=== PATIENT | male | born 1955 | race Caucasian/White ===

== ENCOUNTER 2019-12-19 09:59 | Emergency (ER) | payer OTHER, SELFPAY ==
[2019-12-19] VITALS (11 sets, daily range): BP systolic 114–173; BP diastolic 56–78; PULSE 71–91; RESP 11–20; TEMP 36.5–36.9; O2SAT 97–100; BMI 44.1
--- NOTE | 2019-12-19 11:34 | ECG_ITS ---
Test Reason : sob Blood Pressure : / mmHG Vent. Rate : 065 BPM Atrial Rate : 065 BPM P-R Int : 202 ms QRS Dur : 100 ms QT Int : 454 ms P-R-T Axes : 061 024 046 degrees QTc Int : 472 ms Normal sinus rhythm Low voltage QRS Borderline ECG When compared with ECG of 05-SEP-2019 16:35, QRS voltage has decreased Referred By: Consuelo Granado Electronically Signed By:GINA DELAROSA MD
--- NOTE | 2019-12-19 11:34 | XR_ITS ---
EXAMINATION: XR CHEST CLINICAL INFORMATION: Shortness of breath COMPARISON: 09/05/2019 TECHNIQUE: Frontal view of the chest was obtained. FINDINGS: Cardiac leads overlie the chest. Lung volumes are low. Elevated right hemidiaphragm. Evaluation of the lung parenchyma is limited due to significantly low lung volumes. No dense consolidation. No significant pleural effusion. No edema. No pneumothorax. The cardiomediastinal silhouette remains prominent. Azygos fissure noted. IMPRESSION: Limited evaluation due to significantly low lung volumes. No gross acute pulmonary finding.
--- NOTE | 2019-12-19 11:57 | ED_ITS ---
HPI - Abdominal Pain General Chief Complaint: Abdominal Pain Time Seen by Provider: 12/19/19 11:19 Source: patient, family and EMS Mode of arrival: EMS History of Present Illness HPI narrative: 64-year-old male with a past medical history of HIV/ aids, polysubstance abuse, treated hepatitis-C, HTN, CKD, ascites, COVID-19 positive 12/16, currently a DNR/DNI on hospice care presenting to ED complaining of diffuse abdominal pain and distension, requesting paracentesis. Per patient he has regular scheduled paracentesis's, was scheduled for IR directed paracentesis with PleurX catheter placement which was canceled for unknown reasons. Patient was recently seen at [facility] ED for similar complaints on 12/16, but refused admission due to pain uncontrolled / unhappy with care. Patient follows outpatient here with . reports mild intermittent SOB. Denies CP, nausea/vomiting per [facility] records patient received 1 unit RBCs in ED for hemoglobin of 6.4. BUN/creatinine 68/4.6 and ammonia level 27 MD elicited complaint: abdominal pain Related Data Home Medications Medication Instructions Recorded Confirmed abacavir 600 mg PO DAILY 12/19/19 12/19/19 albuterol sulfate 2.5 mg INHALATION Q4H PRN 12/19/19 12/19/19 ascorbic acid (vitamin C) 250 mg PO BID 12/19/19 12/19/19 atovaquone [Mepron] 750 mg PO BIDWM 12/19/19 12/19/19 diphenhydramine HCl 25 mg PO Q6H PRN 12/19/19 12/19/19 dolutegravir [Tivicay] 50 mg PO BEDTIME 12/19/19 12/19/19 emtricitabine-tenofovir alafen 1 tab PO DAILY 12/19/19 [Descovy] ergocalciferol (vitamin D2) 50,000 unit PO QWEEK 12/19/19 12/19/19 fentanyl 1 patch TRANSDERMAL Q72H 12/19/19 12/19/19 ferrous sulfate 325 mg PO BID 12/19/19 12/19/19 gabapentin 600 mg PO BID 12/19/19 12/19/19 glipizide 2.5 mg PO DAILY 12/19/19 12/19/19 lamivudine 100 mg PO DAILY 12/19/19 12/19/19 methadone 50 mg PO DAILY 12/19/19 nifedipine [Nifedical XL] 60 mg PO DAILY 12/19/19 12/19/19 omeprazole 20 mg PO DAILY 12/19/19 12/19/19 sertraline 150 mg PO DAILY 12/19/19 12/19/19 Allergies Allergy/AdvReac Type Severity Reaction Status Date / Time silver sulfadiazine Allergy Mild BURNING Verified 12/19/19 15:25 [From SILVADENE] erythromycin base Allergy Unknown HIVES Verified 12/19/19 15:25 [Erythromycin Base] Review of Systems Review of Systems Constitutional: No Weight loss, No Fever, No Chills, No Night Sweats, + Fatigue, No Malaise Cardiovascular: No Chest Pain, + SOB, No Dyspnea on Exertion, No Orthopnea, No Edema, No Palpitations Respiratory: No Cough, No Sputum, No Wheezing Gastrointestinal: No Nausea, No Vomiting, No Diarrhea, No Constipation, +Abdom inal pain Skin: No Skin Lesions, No rash Yes all other systems are reviewed and are negative Physical Exam Vital Signs: Vital Signs: Vital Signs Temp Pulse Resp BP Pulse Ox 12/19/19 15:20 98.4 F 91 20 173/78 H 12/19/19 15:19 97.7 F 81 20 154/74 H 99 12/19/19 15:08 97.7 F 79 13 153/73 H 12/19/19 12:24 97.8 F 74 18 137/65 100 12/19/19 10:26 97.8 F 71 16 114/74 99 Body Mass Index 44.1 Const: Other: lethargic on exam, difficulty keeping eyes open, confused General: lethargic Orientation/consciousness: lethargic HENMT: Head: Yes normal to inspection Ears: hearing grossly normal bilaterally General nose exam: Normal external nose present Face and sinus: Yes normal facial exam Eyes: General: appearance normal, both eyes and all related structures EOM: EOMs intact bilaterally Neck: Neck: Yes normal visual inspection Resp: Effort & Inspection: normal respiratory effort Auscultation: di minished lung sounds ( bibasilar) Cardio: Rate: regular rate Heart sounds: S1 normal heart sound present and S2 normal heart sound present GI: Inspection: Yes distended Palpation (GI): Firmness to palpation present (GI), Tenderness to palpation present (GI) ( diffuse), no guarding and not rigid Neuro: Other: Lethargic Extrem: General: Yes normal to inspection Course Course Course Narrative: -1238-- H&H low 6.9/22 >> consent for blood obtained from Healthcare proxy/ (verbally on the phone at [phone]) > will give 1U RBCs -1323-- BUN creatinine and 69/3.83 ( chronically elevated), elevated LDH/alk- phos - ammonia 41, lipase 108 - CXR with low lung volumes. Grossly clear >> IR paged [phone]-- radiology asking for abdomen ultrasound to look for pocket, to perform paracentesis now. Case discussed with hospitalist who does not see benefit of inpatient services as patient is on hospice, and labs at baseline. If patient can get paracentesis tonight without complications, & UA is negative will DC home back to his hospice care. --1700- ED care transferred to RINA Das pending paracentesis, UA, and anticipated dispo per above MDM - Abdominal Pain MDM Narrative Medical decision making narrative: 64-year-old male with a past medical history of HIV/ aids, polysubstance abuse, treated hepatitis-C, HTN, CKD, ascites, COVID-19 positive 12/16, currently a DNR/DNI on hospice care presenting to ED complaining of diffuse abdominal pain and distension, requesting paracentesis. On exam VSS, NAD, lethargic, difficulty keeping eyes open, abdomen distended, firm, diffusely tender. Concern for encephalopathy /fluid overload ascites vs ?infectious etiology. Low concern for SBP, or sepsis. Rule out anemia plan: EKG, labs, CXR, admission Lab Data Result diagrams: 12/19/19 12:17 12/19/19 12:17 Labs: Lab Results 12/19/19 12/19/19 12/19/19 Range/Units 12:17 12:17 12:17 WBC 3.7 L (4.8-10.8) X10*3/uL RBC 2.60 L (4.60-5.80) X10*6/uL Hgb 6.9 L* (14.0-18.0) g/dl Hct 22.0 L (42-52) % MCV 84.6 (80-98) fL MCH 26.5 L (27.0-33.0) pg MCHC 31.4 (31.0-36.0) g/dl RDW 17.2 H (11.0-16.0) % Plt Count 98 L (160-400) X10*3/uL MPV 9.5 (9.4-12.4) fL Immature Gran % (Auto) 1.1 H (0.0-0.4) % Neut % (Auto) 74.4 H (45-73) % Lymph % (Auto) 12.0 L (20-40) % Barrow % (Auto) 9.2 (2-11) % Eos % (Auto) 3.0 (0-4) % Baso % (Auto) 0.3 (0-2) % Lymph # (Auto) 0.4 L (1.2-4.9) X10*3/uL Barrow # (Auto) 0.3 (0.1-1.2) X10*3/uL Eos # (Auto) 0.1 (0.0-0.4) X10*3/uL Baso # (Auto) 0.0 (0.0-0.2) X10*3/uL Abs Immat Gran (auto) 0.04 H (0.00-0.03) X10*3/uL Absolute Neuts (auto) 2.7 (2.0-8.3) X10*3/uL Absolute Nucleated RBC 0.000 (0.0-0.012) X10*3/uL Nucleated RBC % (auto) 0.0 (0.0-0.2) /100WBC Smear Tech's Comments VERIFIED PT (10.8-13.0) SEC INR (0.9-1.1) APTT (24.1-38.0) SEC Sodium (135-145) mmol/L Potassium (3.3-5.1) mmol/l Chloride (96-108) mmol/L Carbon Dioxide (22-29) mmol/L Anion Gap (12-20) BUN (9-16) mg/dL Creatinine (0.5-1.4) mg/dL Estim Creat Clear Calc Estimated GFR Random Glucose (60-115) mg/dL Calcium (8.4-10.2) mg/dL Magnesium (1.6-2.6) mg/dL Ferritin (20-250) ng/mL Total Bilirubin (0.0-1.0) mg/dL Direct Bilirubin (0.0-0.5) mg/dL AST (5-37) U/L ALT (0-40) U/L Alkaline Phosphatase (39-117) U/L Ammonia 41 (13-55) umol/L Lactate Dehydrogenase (118-273) U/L B-Natriuretic Peptide (<100) pg/mL Total Protein (6.5-8.0) g/dL Albumin (3.5-5.0) g/dL Lipase (8-78) U/L Ethyl Alcohol < 10 mg/dL Coronavirus (PCR) (Negative) Blood Type Antibody Screen Crossmatch 12/19/19 12/19/19 12/19/19 Range/Units 12:17 12:17 12:17 WBC (4.8-10.8) X10*3/uL RBC (4.60-5.80) X10*6/uL Hgb (14.0-18.0) g/dl Hct (42-52) % MCV (80-98) fL MCH (27.0-33.0) pg MCHC (31.0-36.0) g/dl RDW (11.0-16.0) % Plt Count (160-400) X10*3/uL MPV (9.4-12.4) fL Immature Gran % (Auto) (0.0-0.4) % Neut % (Auto) (45-73) % Lymph % (Auto) (20-40) % Barrow % (Auto) (2-11) % Eos % (Auto) (0-4) % Baso % (Auto) (0-2) % Lymph # (Auto) (1.2-4.9) X10*3/uL Barrow # (Auto) (0.1-1.2) X10*3/uL Eos # (Auto) (0.0-0.4) X10*3/uL Baso # (Auto) (0.0-0.2) X10*3/uL Abs Immat Gran (auto) (0.00-0.03) X10*3/uL Absolute Neuts (auto) (2.0-8.3) X10*3/uL Absolute Nucleated RBC (0.0-0.012) X10*3/uL Nucleated RBC % (auto) (0.0-0.2) /100WBC Smear Tech's Comments PT 14.3 H (10.8-13.0) SEC INR 1.2 H (0.9-1.1) APTT 42.8 H (24.1-38.0) SEC Sodium 133 L (135-145) mmol/L Potassium 3.6 (3.3-5.1) mmol/l Chloride 107 (96-108) mmol/L Carbon Dioxide 18 L (22-29) mmol/L Anion Gap 12 (12-20) BUN 69 H (9-16) mg/dL Creatinine 3.83 H (0.5-1.4) mg/dL Estim Creat Clear Calc 26.4 Estimated GFR 16 Random Glucose 142 H (60-115) mg/dL Calcium 7.6 L (8.4-10.2) mg/dL Magnesium 1.7 (1.6-2.6) mg/dL Ferritin 315 H (20-250) ng/mL Total Bilirubin 0.4 (0.0-1.0) mg/dL Direct Bilirubin 0.3 (0.0-0.5) mg/dL AST 56 H (5-37) U/L ALT 28 (0-40) U/L Alkaline Phosphatase 354 H (39-117) U/L Ammonia (13-55) umol/L Lactate Dehydrogenase 290 H (118-273) U/L B-Natriuretic Peptide 121 H (<100) pg/mL Total Protein 6.3 L (6.5-8.0) g/dL Albumin 2.1 L (3.5-5.0) g/dL Lipase 108 H (8-78) U/L Ethyl Alcohol mg/dL Coronavirus (PCR) (Negative) Blood Type Antibody Screen Crossmatch 12/19/19 12/19/19 Range/Units 13:21 13:42 WBC (4.8-10.8) X10*3/uL RBC (4.60-5.80) X10*6/uL Hgb (14.0-18.0) g/dl Hct (42-52) % MCV (80-98) fL MCH (27.0-33.0) pg MCHC (31.0-36.0) g/dl RDW (11.0-16.0) % Plt Count (160-400) X10*3/uL MPV (9.4-12.4) fL Immature Gran % (Auto) (0.0-0.4) % Neut % (Auto) (45-73) % Lymph % (Auto) (20-40) % Barrow % (Auto) (2-11) % Eos % (Auto) (0-4) % Baso % (Auto) (0-2) % Lymph # (Auto) (1.2-4.9) X10*3/uL Barrow # (Auto) (0.1-1.2) X10*3/uL Eos # (Auto) (0.0-0.4) X10*3/uL Baso # (Auto) (0.0-0.2) X10*3/uL Abs Immat Gran (auto) (0.00-0.03) X10*3/uL Absolute Neuts (auto) (2.0-8.3) X10*3/uL Absolute Nucleated RBC (0.0-0.012) X10*3/uL Nucleated RBC % (auto) (0.0-0.2) /100WBC Smear Tech's Comments PT (10.8-13.0) SEC INR (0.9-1.1) APTT (24.1-38.0) SEC Sodium (135-145) mmol/L Potassium (3.3-5.1) mmol/l Chloride (96-108) mmol/L Carbon Dioxide (22-29) mmol/L Anion Gap (12-20) BUN (9-16) mg/dL Creatinine (0.5-1.4) mg/dL Estim Creat Clear Calc Estimated GFR Random Glucose (60-115) mg/dL Calcium (8.4-10.2) mg/dL Magnesium (1.6-2.6) mg/dL Ferritin (20-250) ng/mL Total Bilirubin (0.0-1.0) mg/dL Direct Bilirubin (0.0-0.5) mg/dL AST (5-37) U/L ALT (0-40) U/L Alkaline Phosphatase (39-117) U/L Ammonia (13-55) umol/L Lactate Dehydrogenase (118-273) U/L B-Natriuretic Peptide (<100) pg/mL Total Protein (6.5-8.0) g/dL Albumin (3.5-5.0) g/dL Lipase (8-78) U/L Ethyl Alcohol mg/dL Coronavirus (PCR) POSITIVE A (Negative) Blood Type B Positive Antibody Screen NEGATIVE Crossmatch See Detail Discharge Plan Discharge Clinical Impression: Anemia, Ascites, Lethargy Prescriptions: No Action gabapentin 600 mg Tablet 600 mg PO BID RF: 0 sertraline 100 mg Tablet 150 mg PO DAILY RF: 0 ergocalciferol (vitamin D2) 50,000 unit Tablet 50,000 unit PO QWEEK RF: 0 ascorbic acid (vitamin C) 250 mg Tablet 250 mg PO BID RF: 0 ferrous sulfate 325 mg (65 mg iron) Tablet 325 mg PO BID RF: 0 omeprazole 20 mg Capsule,Delayed Release(Dr/Ec) 20 mg PO DAILY RF: 0 Descovy 200-25 mg Tablet 1 tab PO DAILY RF: 0 albuterol sulfate 2.5 mg /3 mL (0.083 %) Solution For Nebulization 2.5 mg INHALATION Q4H PRN (Reason: Shortness Of Breath) RF: 0 diphenhydramine HCl 25 mg Tablet 25 mg PO Q6H PRN (Reason: Allergic Symptoms) RF: 0 methadone 10 mg/mL Concentrate 50 mg PO DAILY RF: 0 atovaquone [Mepron] 750 mg/5 mL Suspension 750 mg PO BIDWM RF: 0 Tivicay 50 mg Tablet 50 mg PO BEDTIME RF: 0 fentanyl 50 mcg/hr Patch 72 Hour 1 patch TRANSDERMAL Q72H RF: 0 nifedipine [Nifedical XL] 60 mg Tablet Extended Release 24hr 60 mg PO DAILY RF: 0 glipizide 2.5 mg Tablet Extended Release 24hr 2.5 mg PO DAILY RF: 0 lamivudine 10 mg/mL Solution 100 mg PO DAILY RF: 0 abacavir 300 mg Tablet 600 mg PO DAILY RF: 0 PMFSH Past Medical History Attestation statement: The following information was validated with the patient. Medical History (Updated 12/19/19 @ 16:21 by RINA Montes De Oca) CKD (chronic kidney disease) Encephalopathy HIV (human immunodeficiency virus infection) Liver failure Social History Social History Alcohol intake: never Smoked in Last 30 Days: No Use of substances other than those prescribed or required for medical reasons: No Advance Directives: No Advance Directives Information Provided: No
[2019-12-19 12:26] LABS: Basophils Percent Auto 0.3 % (0-2); Eosinophils Absolute Auto 0.1 X10*3/uL (0.0-0.4); Imm Gran Abs Auto 0.04 X10*3/uL (0.00-0.03); Imm Gran Pct Auto 1.1 % (0.0-0.4); Lymphocytes Absolute Auto 0.4 X10*3/uL (1.2-4.9); MANUAL DIFF FLAG SCAN; Mean Corpuscular HGB Conc 31.4 g/dl (31.0-36.0); Mean Corpuscular Hemoglobin 26.5 pg (27.0-33.0); Mean Corpuscular Volume 84.6 fL (80-98); Mean Platelet Volume 9.5 fL (9.4-12.4); Monocytes Absolute Auto 0.3 X10*3/uL (0.1-1.2); Monocytes Percent Auto 9.2 % (2-11); Neutrophils Absolute Auto 2.7 X10*3/uL (2.0-8.3); Neutrophils Percent Auto 74.4 % (45-73); Red Cell Distribution Width 17.2 % (11.0-16.0); SCAN SMEAR FLAG 1; White Blood Count 3.7 X10*3/uL (4.8-10.8)
--- NOTE | 2019-12-19 12:27 | PC.NURSE ---
introduced self to pt. c/o lower back pain chronic. pt is alert and oriented to person and place, somnolent, cannot finish sentences. denies any OPI use this am. denies sob. vs wnl, lung sounds clear. rapid covid to be performed.
[2019-12-19 12:30] LABS: INTERNATIONAL NORM RATIO 1.2 (0.9-1.1); Prothrombin Time 14.3 SEC (10.8-13.0)
[2019-12-19 12:32] LABS: Hemoglobin 6.9 g/dl (14.0-18.0); Platelet Count 98 X10*3/uL (160-400)
[2019-12-19 12:33] LABS: Partial Thromboplastin Time 42.8 SEC (24.1-38.0)
--- NOTE | 2019-12-19 12:37 | XR_ITS ---
EXAMINATION: XR CHEST CLINICAL INFORMATION: Shortness of breath, COVID+ COMPARISON: Chest radiographs 12/19/2019, 09/05/2019 TECHNIQUE: Upright portable AP view of the chest is performed. FINDINGS: Patient is slightly rotated to left and lordotically position. There are low lung volumes. There is no lobar or segmental airspace consolidation or definite groundglass opacity. Azygous fissure/lobe again noted right medial apex. The heart is normal in size. The vascularity is normal. IMPRESSION: Low lung volumes. Lungs grossly clear.
[2019-12-19 12:42] LABS: Ammonia 41 umol/L (13-55)
[2019-12-19 12:45] LABS: Ethanol < 10 mg/dL
[2019-12-19 12:52] LABS: B Type Natriuretic Peptide 121 pg/mL (<100)
[2019-12-19 13:00] LABS: Alanine Aminotransferase 28 U/L (0-40); Albumin Level 2.1 g/dL (3.5-5.0); Alkaline Phosphatase 354 U/L (39-117); Anion Gap 12 (12-20); Aspartate Amino Transferase 56 U/L (5-37); Bilirubin Direct 0.3 mg/dL (0.0-0.5); Bilirubin Total 0.4 mg/dL (0.0-1.0); Blood Urea Nitrogen 69 mg/dL (9-16); Calcium 7.6 mg/dL (8.4-10.2); Carbon Dioxide 18 mmol/L (22-29); Chloride 107 mmol/L (96-108); Creatinine Clr Calc Pharmacy 26.4; Estimated Glomerular Filt Rate 16; Glucose Random 142 mg/dL (60-115); Lactate Dehydrogenase 290 U/L (118-273); Magnesium 1.7 mg/dL (1.6-2.6); Potassium 3.6 mmol/l (3.3-5.1); Sodium 133 mmol/L (135-145); Total Protein 6.3 g/dL (6.5-8.0)
[2019-12-19 13:10] LABS: Ferritin 315 ng/mL (20-250)
[2019-12-19 13:18] LABS: Lipase 108 U/L (8-78)
[2019-12-19 14:02] LABS: SLIDE REVIEW VERIFIED
[2019-12-19 14:42] LABS: SARS COV2 PCR INHOUSE POSITIVE (Negative)
--- NOTE | 2019-12-19 14:47 | PC.NURSE ---
PHARMACY TO COMPLETE MED REC. 18G IN L AC PLACED WITH ULTRASOUND BY AYUSH CASON
--- NOTE | 2019-12-19 15:24 | PC.NURSE ---
call made out to pharmacy, they will fax over med list. blood running
--- NOTE | 2019-12-19 16:34 | US_ITS ---
EXAMINATION: ULTRASOUND-GUIDED PARACENTESIS CLINICAL INFORMATION: Ascites COMPARISON: None TECHNIQUE: Ultrasound-guided paracentesis FINDINGS: Informed consent was obtained from the patient prior to the procedure. During this process, the procedure and potential alternatives were explained, along with the intended outcome and benefits. The risks of the procedure, as well as the risk of not doing the procedure, were discussed. The patient was given the opportunity to ask questions regarding the procedure and appeared competent to make medical decisions. A signed consent form which documents this discussion was placed in the medical record. Using sterile technique and ultrasound guidance a 5 Lao Yueh needle needle was placed into the peritoneal cavity within the left lower quadrant and a total of 9.7 mL of slightly cloudy yellow fluid was removed. Patient, procedure without difficulty. IMPRESSION: Paracentesis with removal of 9.7 L of slightly cloudy yellow fluid.
[2019-12-19] MEDS: fentaNYL citrate/PF 100 MCG/2 ML VIAL 50 MCG IVPUSH (16:50)
--- NOTE | 2019-12-19 16:56 | PC.NURSE ---
PT TO RADIOLOGY FOR ULTRASOUND. BLOOD INFUSED AND DOCUMENTED. MEDICATED FOR CHRONIC BACK PAIN PER EMR.
--- NOTE | 2019-12-19 17:57 | PC.NURSE ---
PER ULTRASOUND RN, 9.7L DRAINED DURING PARACENTESIS.LAST BP 153/68, DRAINED FROM L SIDE.
[2019-12-19 18:56] LABS: Glucose Urine UA NEG (NEG); Leukocyte Esterase Urine NEG (NEG); Nitrite Urine NEG (NEG); PH 5.5 (5.0-8.0); Specific Gravity - Urine 1.025 (1.005-1.025); Urine Blood 3+ (NEG); Urine Ketones NEG (NEG); Urine Protein 2+ MG/DL (NEG-TRACE)
[2019-12-19 18:57] LABS: Color Urine YELLOW
[2019-12-19 18:58] LABS: Appearance Urine CLEAR
[2019-12-19 19:11] LABS: Bacteria Urine 1+ /LPF; WBC Urine 0 /HPF (0-4)
[2019-12-19 19:16] LABS: Amphetamine Screen Urine Not Detected (Not Detect); Barbiturates, Urine Not Detected (Not Detect); Benzodiazepines Screen Urine Not Detected (Not Detect); Cannabinoid Screen Urine Not Detected (Not Detect); Cocaine Screen Urine Not Detected (Not Detect); Opiate Screen Urine POSITIVE (Not Detect); Phencyclidine Screen Urine Not Detected (Not Detect)
[2019-12-19 19:49] LABS: WBC Peritoneal Fluid 0.122 X10*3/uL
[2019-12-19 19:50] LABS: Neutrophils Peritoneal Fluid 9 %; RBC Peritoneal Fluid < 0.002 X10*6/uL
[2019-12-19 19:51] LABS: BF Shift QC OK YES; Basophils Peritoneal Fl 0 %; Eosinophils Peritoneal Fl 0 %; Lymphocyte Peritoneal Fl 41 %; Monocytes Peritoneal Fl 34 %; Other Peritioneal Fl 16 %
[2019-12-19 19:52] LABS: Man Diluent Bkgrd OK YES; PMN% 7.4 %
[2019-12-19 19:53] LABS: MN% 92.6 %
--- NOTE | 2019-12-19 20:20 | PC.NURSE ---
awaiting specimen culture results from fluid drawn during paracentesis
--- NOTE | 2019-12-19 21:10 | PC.NURSE ---
call made out to microbiology, there is debate about whether specimen is processed inhouse or sent out. they will call back with update
--- NOTE | 2019-12-19 21:29 | PC.NURSE ---
LAB CALLED, PTS SPECIMEN HAS TO BE SENT OUT, ONLY PROCESSED DURING THE DAY. PT AGREES TO ADMISSION.
--- NOTE | 2019-12-19 22:36 | PC.NURSE ---
PT TO BE DISCHARGED PER HOSPITALIST. PT REUQESTING MORE PAIN MEDICATIONS. PA AWARE. PT C/O NECK, BACK, ABDOMINAL PAIN. ORIGINALLY, ABDOMINAL PAIN RESOLVED WITH PARACENTESIS. PT AWARE OF PLAN TO DISCHARGE.
--- NOTE | 2019-12-19 23:29 | PC.NURSE ---
REPORT TAKEN FROM DINO AT 23:00. PT DISCHARGED, EMS HERE FOR TRANSPORT HOME.
--- NOTE | 2019-12-19 23:53 | PC.NURSE ---
ems in room and ready to take patient home. pt initially claimed that his medication bottles were placed in his black bag. no medications found. pt then reports that his medications were brought to pharmacy. slip in chart located and given to patient. pharmacy closed, pt needs to return at 6am.
[2019-12-20 08:58] LABS: Albumin Peritoneal Fluid 0.3
--- NOTE | 2019-12-22 09:00 | PC.NURSE ---
pt was not admitted he was dc on 12/19 at 0058
== END 2019-12-22 09:09 | disposition home or self-care (01) ==
PROVIDERS: Physician Assistant; Emergency Provider Emergency Medicine; PCP Internal Medicine
DX: U07.1 COVID-19 (principal); D64.9 Anemia, unspecified; R18.8 Other ascites; R53.83 Other fatigue; I12.9 Hypertensive chronic kidney disease with stage 1 through stage 4 chronic kidney disease, or unspecified chronic kidney disease; N18.9 Chronic kidney disease, unspecified; Z21 Asymptomatic human immunodeficiency virus [HIV] infection status; K72.90 Hepatic failure, unspecified without coma; Z66 Do not resuscitate
CPT/HCPCS: 36415; 36430; 49083; 71045; 80048; 80076; 80307; 80320; 81001; 82042; 82140; 82728; 83615; 83690; 83735; 83880; 85025; 85610; 85730; 86850; 86900; 86901; 86920; 86923; 87071; 87205; 87635; 89051; 93005; 99284; 99285; J3010; P9016

== ENCOUNTER 2019-12-22 22:34 | Emergency (ER) | payer OTHER, SELFPAY ==
[2019-12-22 22:51] VITALS: BP 135/63; PULSE 75; RESP 16; TEMP 36.8; O2SAT 100; BMI 35.4
--- NOTE | 2019-12-22 23:56 | ED_ITS ---
HPI - General Adult General Chief complaint: Altered Mental Status Stated complaint: ams Time Seen by Provider: 12/22/19 23:07 History of Present Illness HPI narrative: This is a 64-year-old male with multiple comorbidities and currently on hospice and recently seen here in the emergency department on 12/18 and that time found to be COVID-19 positive. In addition, patient was brought i n by EMS with reports that they had been called to the house earlier in the day but patient had declined transportation and then again called this evening and they endorse that patient has altered mental status. on evaluation of the patient at bedside he is very upset and continues to state that he is angry to be here. He is saying that it is 2020 and states that he was seen here a couple of days ago and had fluid removed from his abdomen. Otherwise, patient denies any fevers, chills, nausea, vomiting, abdominal discomfort. Related Data Home Medications Medication Instructions Recorded Confirmed abacavir 600 mg PO DAILY 12/19/19 12/19/19 albuterol sulfate 2.5 mg INHALATION Q4H PRN 12/19/19 12/19/19 ascorbic acid (vitamin C) 250 mg PO BID 12/19/19 12/19/19 atovaquone [Mepron] 750 mg PO BIDWM 12/19/19 12/19/19 diphenhydramine HCl 25 mg PO Q6H PRN 12/19/19 12/19/19 dolutegravir [Tivicay] 50 mg PO BEDTIME 12/19/19 12/19/19 emtricitabine-tenofovir alafen 1 tab PO DAILY 12/19/19 [Descovy] ergocalciferol (vitamin D2) 50,000 unit PO QWEEK 12/19/19 12/19/19 fentanyl 1 patch TRANSDERMAL Q72H 12/19/19 12/19/19 ferrous sulfate 325 mg PO BID 12/19/19 12/19/19 gabapentin 600 mg PO BID 12/19/19 12/19/19 glipizide 2.5 mg PO DAILY 12/19/19 12/19/19 lamivudine 100 mg PO DAILY 12/19/19 12/19/19 methadone 50 mg PO DAILY 12/19/19 nifedipine [Nifedical XL] 60 mg PO DAILY 12/19/19 12/19/19 omeprazole 20 mg PO DAILY 12/19/19 12/19/19 sertraline 150 mg PO DAILY 12/19/19 12/19/19 Allergies Allergy/AdvReac Type Severity Reaction Status Date / Time silver sulfadiazine Allergy Mild BURNING Verified 12/19/19 15:25 [From SILVADENE] erythromycin base Allergy Unknown HIVES Verified 12/19/19 15:25 [Erythromycin Base] Review of Systems Review of Systems: Pertinent positives and negatives as stated in HPI 10 point review systems is otherwise negative. [facility] Past Medical History Source: nursing notes reviewed Medical History CKD (chronic kidney disease) Encephalopathy HIV (human immunodeficiency virus infection) Liver failure Social History Social History Alcohol intake: never Advance Directives: No Physical Exam Vital Signs: Vital Signs: Vital Signs Temp Pulse Resp BP Pulse Ox 12/23/19 02:58 98.7 F 87 14 135/67 99 12/23/19 00:39 98.1 F 73 14 132/61 100 12/22/19 22:51 98.3 F 75 16 135/63 100 Body Mass Index 35.4 VITAL SIGNS: Reviewed. GENERAL: Chronic illness, appears older than stated age, in no acute distress. HEAD: Normocephalic/atraumatic, EYES: PERRLA, EOMI intact without pain, no nystagmus/pallor/icterus noted EARS: Ext canals without abnormality, TMs non-bulging and non-erythematous NOSE: Nares patent bilateral OROPHARYNX: no oral lesions noted, posterior pharynx clear and non-erythematous without noted tonsillar enlargement/erythema/exudates NECK: Supple, no adenopathy LUNGS: Normal breath sounds. No adventitious sounds or accessory muscle use. SpO2<100> CARDIOVASCULAR: Regular rate and rhythm without noted murmurs, no JVD or lower extremity edema. ABDOMEN: Soft, distended, with bowel sounds. No rigidity. No guarding. No palpable masses or hernias noted MUSCULOSKELETAL: No tenderness, deformities, or effusions noted on gross inspection. EXTREMITIES: No cyanosis, clubbing or edema, chronic skin thickening and discoloration. SKIN: Inspection of the skin reveals no rashes, ulcerations, jaundice, pallor, or petechiae. NEUROLOGIC: Drowsy and oriented x 3. Strength and sensation to light touch were grossly intact x 4. Course Course Course Narrative: this is a 64-year-old male with history and clinical presentation of multiple visits between [facility] in [facility]. Although patient is drowsy he appears to be appropriate and response and is upset about being brought in. Suspect that drowsiness secondary to pain medication regimen while on hospice. Review of investigations is negative for any acute derangements when compared to prior and patient is hemodynamically stable. Patient states he wishes to return home and it is felt that he is appropriate to make this request in light of clinical evaluation and review of lab work as well as vital signs. Medical Decision Making Lab Data Result diagrams: 12/23/19 01:01 12/23/19 01:01 Labs: Lab Results 12/23/19 12/23/19 12/23/19 Range/Units 01:01 01:01 01:01 WBC 3.9 L (4.8-10.8) X10*3/uL RBC 2.62 L (4.60-5.80) X10*6/uL Hgb 7.3 L (14.0-18.0) g/dl Hct 22.7 L (42-52) % MCV 86.6 (80-98) fL MCH 27.9 (27.0-33.0) pg MCHC 32.2 (31.0-36.0) g/dl RDW 17.3 H (11.0-16.0) % Plt Count 108 L (160-400) X10*3/uL MPV 11.2 (9.4-12.4) fL Immature Gran % (Auto) 0.8 H (0.0-0.4) % Neut % (Auto) 73.0 (45-73) % Lymph % (Auto) 11.2 L (20-40) % [place] % (Auto) 10.2 (2-11) % Eos % (Auto) 4.3 H (0-4) % Baso % (Auto) 0.5 (0-2) % Lymph # (Auto) 0.4 L (1.2-4.9) X10*3/uL [place] # (Auto) 0.4 (0.1-1.2) X10*3/uL Eos # (Auto) 0.2 (0.0-0.4) X10*3/uL Baso # (Auto) 0.0 (0.0-0.2) X10*3/uL Abs Immat Gran (auto) 0.03 (0.00-0.03) X10*3/uL Absolute Neuts (auto) 2.9 (2.0-8.3) X10*3/uL Absolute Nucleated RBC 0.000 (0.0-0.012) X10*3/uL Nucleated RBC % (auto) 0.0 (0.0-0.2) /100WBC Smear Tech's Comments VERIFIED Sodium 136 (135-145) mmol/L Potassium 4.0 (3.3-5.1) mmol/l Chloride 110 H (96-108) mmol/L Carbon Dioxide 18 L (22-29) mmol/L Anion Gap 12 (12-20) BUN 71 H (9-16) mg/dL Creatinine 3.90 H (0.5-1.4) mg/dL Estim Creat Clear Calc 26.0 Estimated GFR 16 Random Glucose 134 H (60-115) mg/dL Calcium 7.4 L (8.4-10.2) mg/dL Total Bilirubin 0.4 (0.0-1.0) mg/dL AST 38 H (5-37) U/L ALT 20 (0-40) U/L Alkaline Phosphatase 265 H D (39-117) U/L Ammonia 47 (13-55) umol/L Total Protein 6.1 L (6.5-8.0) g/dL Albumin 2.0 L (3.5-5.0) g/dL Lipase 92 H (8-78) U/L Discharge Plan Discharge Clinical Impression: Encounter for medical screening examination Patient Disposition: Home, Self-Care Instructions: Ascites (ED), Altered Mental Status (ED) Additional Instructions: please do not hesitate to return to the emergency department should you e xperience any acute worsening of your symptoms. Prescriptions: No Action gabapentin 600 mg Tablet 600 mg PO BID RF: 0 sertraline 100 mg Tablet 150 mg PO DAILY RF: 0 ergocalciferol (vitamin D2) 50,000 unit Tablet 50,000 unit PO QWEEK RF: 0 ascorbic acid (vitamin C) 250 mg Tablet 250 mg PO BID RF: 0 ferrous sulfate 325 mg (65 mg iron) Tablet 325 mg PO BID RF: 0 omeprazole 20 mg Capsule,Delayed Release(Dr/Ec) 20 mg PO DAILY RF: 0 Descovy 200-25 mg Tablet 1 tab PO DAILY RF: 0 albuterol sulfate 2.5 mg /3 mL (0.083 %) Solution For Nebulization 2.5 mg INHALATION Q4H PRN (Reason: Shortness Of Breath) RF: 0 diphenhydramine HCl 25 mg Tablet 25 mg PO Q6H PRN (Reason: Allergic Symptoms) RF: 0 methadone 10 mg/mL Concentrate 50 mg PO DAILY RF: 0 atovaquone [Mepron] 750 mg/5 mL Suspension 750 mg PO BIDWM RF: 0 Tivicay 50 mg Tablet 50 mg PO BEDTIME RF: 0 fentanyl 50 mcg/hr Patch 72 Hour 1 patch TRANSDERMAL Q72H RF: 0 nifedipine [Nifedical XL] 60 mg Tablet Extended Release 24hr 60 mg PO DAILY RF: 0 glipizide 2.5 mg Tablet Extended Release 24hr 2.5 mg PO DAILY RF: 0 lamivudine 10 mg/mL Solution 100 mg PO DAILY RF: 0 abacavir 300 mg Tablet 600 mg PO DAILY RF: 0 Referrals: Dante Braun MD [Physician] - 2 days (Patient needs to be further evaluated for goals of care while being on hospice as there have been multiple hospital visits.)
[2019-12-23 00:39] VITALS: BP 132/61; PULSE 73; RESP 14; TEMP 36.7; O2SAT 100
[2019-12-23 01:18] LABS: Basophils Percent Auto 0.5 % (0-2); Eosinophils Absolute Auto 0.2 X10*3/uL (0.0-0.4); Eosinophils Percent Auto 4.3 % (0-4); Hematocrit 22.7 % (42-52); Hemoglobin 7.3 g/dl (14.0-18.0); Imm Gran Abs Auto 0.03 X10*3/uL (0.00-0.03); Imm Gran Pct Auto 0.8 % (0.0-0.4); Lymphocytes Absolute Auto 0.4 X10*3/uL (1.2-4.9); Lymphocytes Percent Auto 11.2 % (20-40); MANUAL DIFF FLAG SCAN; Mean Corpuscular HGB Conc 32.2 g/dl (31.0-36.0); Mean Corpuscular Hemoglobin 27.9 pg (27.0-33.0); Mean Corpuscular Volume 86.6 fL (80-98); Mean Platelet Volume 11.2 fL (9.4-12.4); Monocytes Absolute Auto 0.4 X10*3/uL (0.1-1.2); Monocytes Percent Auto 10.2 % (2-11); Neutrophils Absolute Auto 2.9 X10*3/uL (2.0-8.3); Platelet Count 108 X10*3/uL (160-400); Red Blood Count 2.62 X10*6/uL (4.60-5.80); Red Cell Distribution Width 17.3 % (11.0-16.0); SCAN SMEAR FLAG 1; White Blood Count 3.9 X10*3/uL (4.8-10.8)
[2019-12-23 01:20] LABS: Ammonia 47 umol/L (13-55)
[2019-12-23 01:46] LABS: Alanine Aminotransferase 20 U/L (0-40); Alkaline Phosphatase 265 U/L (39-117); Anion Gap 12 (12-20); Aspartate Amino Transferase 38 U/L (5-37); Bilirubin Total 0.4 mg/dL (0.0-1.0); Blood Urea Nitrogen 71 mg/dL (9-16); Calcium 7.4 mg/dL (8.4-10.2); Carbon Dioxide 18 mmol/L (22-29); Chloride 110 mmol/L (96-108); Estimated Glomerular Filt Rate 16; Glucose Random 134 mg/dL (60-115); Sodium 136 mmol/L (135-145); Total Protein 6.1 g/dL (6.5-8.0)
[2019-12-23 01:47] LABS: SLIDE REVIEW VERIFIED
[2019-12-23 02:01] LABS: Lipase 92 U/L (8-78)
[2019-12-23 02:58] VITALS: BP 135/67; PULSE 87; RESP 14; TEMP 37.1; O2SAT 99
--- NOTE | 2019-12-23 03:25 | PC.NURSE ---
PER PT MEDICALLY CLEARED AND READY FOR D/C, SPOKE TO PTS WHO STATES PT NEEDS EMS TO GET HOME. U/S ARRANGING TRANSPORT AT THIS TIME
== END 2019-12-23 04:46 | disposition home or self-care (01) ==
PROVIDERS: Emergency Provider Student in an Organized Health Care Education/Training Program
DX: R41.82 Altered mental status, unspecified (principal); Z86.19 Personal history of other infectious and parasitic diseases; N18.9 Chronic kidney disease, unspecified; Z21 Asymptomatic human immunodeficiency virus [HIV] infection status; K72.90 Hepatic failure, unspecified without coma
CPT/HCPCS: 36415; 80053; 82140; 83690; 85025; 99283; 99284

== ENCOUNTER 2020-01-09 05:31 | Emergency (ER) | payer OTHER, SELFPAY ==
--- NOTE | 2020-01-09 05:37 | CT_ITS ---
EXAMINATIONS: CT HEAD WITHOUT CONTRAST AND CT CERVICAL SPINE WITHOUT CONTRAST CLINICAL INFORMATION: Trauma. Fall. COMPARISON: 09/07/2018. TECHNIQUE: Contiguous helical images of the brain were obtained without IV contrast. Contiguous helical images of the cervical spine were obtained without IV contrast. Multiplanar reconstructions were performed. DLP: 841 mGy-cm. FINDINGS: There are no pathologic extra-axial fluid collections. The lateral, third, fourth ventricles are mildly prominent, though stable, age-appropriate and concordant with the appearance of the sulci. There is no evidence for acute intraparenchymal hemorrhage or infarct. There is neither mass nor mass effect. There is no shift of midline structures. The paranasal sinuses and mastoid air cells are clear. There are no osseous lesions. The cervical vertebra are in normal alignment. There is disc height loss at C5/C6. There is fusion to the C6 and C7 vertebral bodies. Disc heights and vertebral heights are otherwise well-preserved. There are no fractures. There is no prevertebral soft tissue swelling. There is no cervical lymphadenopathy. The visualized lung apices are clear. CT/CT cervical spine wo con IMPRESSION: No evidence for acute intracranial injury. No evidence for acute injury to the cervical spine. Automated exposure control (Care Dose) Adjustment of the mA and/or kv according to patient size (this includes techniques or standardized protocols for targeted exams where dose is matched to indication / reason for exam; i.e. extremities or head).
--- NOTE | 2020-01-09 05:39 | ECG_ITS ---
Test Reason : FALL Blood Pressure : / mmHG Vent. Rate : 095 BPM Atrial Rate : 095 BPM P-R Int : 154 ms QRS Dur : 092 ms QT Int : 382 ms P-R-T Axes : 053 005 049 degrees QTc Int : 480 ms Normal sinus rhythm Intra-ventricular conduction delay Left axis deviation Borderline ECG When compared with ECG of 19-DEC-2019 11:46, Heart rate has increased Referred By: Vivi Gilmore Electronically Signed By:GINA DELAROSA MD
[2020-01-09 05:44] VITALS: BP 168/72; PULSE 91; RESP 20; TEMP 36.5; O2SAT 92; BMI 35.0
--- NOTE | 2020-01-09 05:50 | ED_ITS ---
HPI - Fall General Chief Complaint: Fall Stated Complaint: lac due to fall Time Seen by Provider: 01/09/20 05:32 History of Present Illness HPI Narrative: This is a 64-year-old male with past medical history of HIV, hepatitis-C (status post treatment with Harvoni), liver cirrhosis, hypertension, depression, CKD stage 4, peripheral neuropathy, who is on hospice (currently DNR /DNI ) and recently COVID-19 positive 12/16 who is brought in by EMS after sustaining a fall out of bed and unknown whether not patient experienced LOC but hit his forehead. This was witnessed by his power of corporate associate attorney, Kathie. He is a poor historian. Patient denies any shortness of breath, chest pain/palpitations, nausea/vomiting /abdominal pain. Related Data Home Medications Medication Instructions Recorded Confirmed abacavir 600 mg PO DAILY 12/19/19 12/19/19 albuterol sulfate 2.5 mg INHALATION Q4H PRN 12/19/19 12/19/19 ascorbic acid (vitamin C) 250 mg PO BID 12/19/19 12/19/19 atovaquone [Mepron] 750 mg PO BIDWM 12/19/19 12/19/19 diphenhydramine HCl 25 mg PO Q6H PRN 12/19/19 12/19/19 dolutegravir [Tivicay] 50 mg PO BEDTIME 12/19/19 12/19/19 emtricitabine-tenofovir alafen 1 tab PO DAILY 12/19/19 [Descovy] ergocalciferol (vitamin D2) 50,000 unit PO QWEEK 12/19/19 12/19/19 fentanyl 1 patch TRANSDERMAL Q72H 12/19/19 12/19/19 ferrous sulfate 325 mg PO BID 12/19/19 12/19/19 gabapentin 600 mg PO BID 12/19/19 12/19/19 glipizide 2.5 mg PO DAILY 12/19/19 12/19/19 lamivudine 100 mg PO DAILY 12/19/19 12/19/19 methadone 50 mg PO DAILY 12/19/19 nifedipine [Nifedical XL] 60 mg PO DAILY 12/19/19 12/19/19 omeprazole 20 mg PO DAILY 12/19/19 12/19/19 sertraline 150 mg PO DAILY 12/19/19 12/19/19 Allergies Allergy/AdvReac Type Severity Reaction Status Date / Time silver sulfadiazine Allergy Mild BURNING Verified 12/19/19 15:25 [From SILVADENE] erythromycin base Allergy Unknown HIVES Verified 12/19/19 15:25 [Erythromycin Base] Review of Systems Review of Systems: Pertinent positives and negatives as stated in H PI and 10 point review of systems is otherwise negative. [facility] Past Medical History Source: nursing notes reviewed Medical History Chronic hepatitis C Chronic venous insufficiency CKD (chronic kidney disease) Depression Encephalopathy GERD (gastroesophageal reflux disease) HIV (human immunodeficiency virus infection) HTN (hypertension) Liver cirrhosis Liver failure Non-healing ulcer of lower leg Pancytopenia Peripheral neuropathy Polysubstance abuse Type 2 diabetes mellitus Surgical History History of biopsy Family History Family History Mother Alzheimer disease Father Prostate cancer HTN (hypertension) Social History Social History Alcohol intake: unknown Smoking Status: Never smoker Use of substances other than those prescribed or required for medical reasons: Unknown Substance Use Type: IV Drugs and Opiates Advance Directives: No Physical Exam Vital Signs: Vital Signs: Vital Signs Temp Pulse Resp BP Pulse Ox 01/09/20 05:44 97.7 F 91 20 168/72 H 92 Body Mass Index 35.0 VITAL SIGNS: Reviewed. GENERAL: Chronic illness, appears older than stated age, in no acute distress. HEAD: Normocephalic/atraumatic, EYES: PERRLA, EOMI intact without pain, no nystagmus/pallor/icterus noted EARS: Ext canals without abnormality, TMs non-bulging and non-erythematous NOSE: Nares patent bilateral OROPHARYNX: no oral lesions noted, posterior pharynx clear and non-erythematous without noted tonsillar enlargement/erythema/exudates NECK: Supple, no adenopathy LUNGS: Normal breath sounds. No adventitious sounds or accessory muscle use. SpO2<92> CARDIOVASCULAR: Regular rate and rhythm without noted murmurs, no JVD or lower extremity edema. ABDOMEN: Soft, distended, with bowel sounds. No rigidity. No guarding. No palpable masses or hernias noted MUSCULOSKELETAL: No tenderness, deformities, or effusions noted on gross inspection. EXTREMITIES: No cyanosis, clubbing or edema, chronic skin thickening and disco loration. SKIN: Inspection of the skin reveals no rashes, ulcerations, jaundice, pallor, or petechiae. NEUROLOGIC: Drowsy and oriented x 3. Strength and sensation to light touch were grossly intact x 4. Course Course Course Narrative: This is a 64-year-old male with history and clinical presentation consistent with accidental fall from bed without LOC and currently has no acute complaints but will be evaluated with CT of head/cervical spine and included abdomen as well for assessment as to whether not patient may benefit from paracentesis since he is here in the emergency department today. Reevaluation(s) Reevaluation #1: I spoke extensively with Kathie, this patient's power of corporate associate attorney, who agrees that he suffers from drug delirium due to multiple medications that he has been provided for hospice. She is requesting for evaluation and appropriateness of possible paracentesis due to the difficulties and getting patient in an out of their apartment on the 3rd floor the typically requires 2 ambulance is (4 males). Time: 06:35 MDM - Fall Lab Data Result diagrams: 01/09/20 06:42 01/09/20 06:42 Labs: Lab Results 01/09/20 01/09/20 Range/Units 06:38 06:42 POC Glucose 105 (60-115) mg/dL Ammonia 47 (13-55) umol/L ECG Data Attestation: I personally reviewed and interpreted this ECG as follows: Prior ECG tracings: not available for review Interpretation: Normal sinus rhythm, HR - 95, no evidence of acute ischemia, OR/QRS are within normal limits. Discharge Plan Discharge Prescriptions: No Action gabapentin 600 mg Tablet 600 mg PO BID RF: 0 sertraline 100 mg Tablet 150 mg PO DAILY RF: 0 ergocalciferol (vitamin D2) 50,000 unit Tablet 50,000 unit PO QWEEK RF: 0 ascorbic acid (vitamin C) 250 mg Tablet 250 mg PO BID RF: 0 ferrous sulfate 325 mg (65 mg iron) Tablet 325 mg PO BID RF: 0 omeprazole 20 mg Capsule,Delayed Release(Dr/Ec) 20 mg PO DAILY RF: 0 Descovy 200-25 mg Tablet 1 tab PO DAILY RF: 0 albuterol sulfate 2.5 mg /3 mL (0.083 %) Solution For Nebulization 2.5 mg INHALATION Q4H PRN (Reason: Shortness Of Breath) RF: 0 diphenhydramine HCl 25 mg Tablet 25 mg PO Q6H PRN (Reason: Allergic Symptoms) RF: 0 methadone 10 mg/mL Concentrate 50 mg PO DAILY RF: 0 atovaquone [Mepron] 750 mg/5 mL Suspension 750 mg PO BIDWM RF: 0 Tivicay 50 mg Tablet 50 mg PO BEDTIME RF: 0 fentanyl 50 mcg/hr Patch 72 Hour 1 patch TRANSDERMAL Q72H RF: 0 nifedipine [Nifedical XL] 60 mg Tablet Extended Release 24hr 60 mg PO DAILY RF: 0 glipizide 2.5 mg Tablet Extended Release 24hr 2.5 mg PO DAILY RF: 0 lamivudine 10 mg/mL Solution 100 mg PO DAILY RF: 0 abacavir 300 mg Tablet 600 mg PO DAILY RF: 0
--- NOTE | 2020-01-09 06:00 | PC.NURSE ---
PT OFF FLOOR TO CT- UNCOOPERATIVE WITH WEARING MASK AND CCOLLAR. REDIRECTED FROM PULLING BOTH ITEMS OFF MULTIPLE TIMES. DIFFICULT TO FOLLOW DIRECTIONS.
--- NOTE | 2020-01-09 06:04 | CT_ITS ---
EXAMINATION: UNENHANCED CT OF THE CHEST, ABDOMEN PELVIS. CLINICAL INFORMATION: Fall. COMPARISON: Chest radiograph 12/19/2019. TECHNIQUE: Unenhanced CT of the chest, abdomen pelvis with multiple coronal and sagittal reformatted images. This CT examination was performed using dose optimization techniques as appropriate, variously including the following: *Automated exposure control *Adjustment of mA and/or kV according to patient size (this includes techniques or standardized protocols for targeted exams where dose is matched to indication/reason for exam; i.e. extremities or head) *Use of iterative reconstruction technique DLP: 1797 mGy-cm FINDINGS: Lungs: Incidental note is made of an azygos lobe fissure. Images of the lungs are suboptimal secondary to motion artifact. No pulmonary consolidation is identified. Small dependent layering low density bilateral pleural effusions are visualized. Mediastinum: The visualized thyroid is normal in appearance. Mild scattered aortic calcific atherosclerosis is noted. The thoracic aorta is grossly normal in contour and caliber making allowances for motion artifact. Partial visualization is made of diffuse coronary artery calcific atherosclerosis. The heart size is grossly normal. No gross pericardial fluid collections identified. No mediastinal lymphadenopathy. CHEST WALL: No axillary lymphadenopathy. Left breast is partially excluded from the image [id number]. Partial visualization is made of bilateral gynecomastia. Liver: The liver demonstrates a diffusely nodular capsular contour and diminutive size suspicious for cirrhosis. No focal lesions of the liver are identified. Moderate prominence of the paraesophageal veins and umbilical vein is noted consistent with portal venous hypertension. The main portal vein is slightly prominent in caliber. Biliary system: Gallbladder appears physiologically distended. No biliary duct dilatation is identified. Pancreas: Atrophic. Spleen: Diffusely enlarged measuring 21 cm in maximum transaxial dimension. Adrenal glands: Normal. Kidneys: Normal. No hydronephrosis. No urolithiasis. Urinary bladder: Physiologically distended. GI system: No intestinal dilatation or mural thickening. A possible diminutive appendix is noted (series 2 image 59). No pericecal focal inflammatory changes are identified. A moderate quantity of scattered low density (-10 Hounsfield unit) free intraperitoneal fluid is noted with findings most pronounced in the left and right subphrenic spaces. Diffuse increased reticulation of the small bowel mesenteric fat is visualized. No free intraperitoneal gas is identified. Abdominal wall: A left lower abdominal quadrant rectus hernia containing nondilated small bowel segments and free intraperitoneal fluid is noted. Anasarca is visualized. The hernia measures 11 cm in diameter. Pelvic viscera: The prostate is normal in size. Scattered pelvic phleboliths are visualized. Vascular: Mild diffuse calcific atherosclerosis with focally prominent calcific atherosclerosis within the splenic artery. Lymph nodes: No lymphadenopathy is identified. MUSCULOSKELETAL: Images of the ribs and chest are suboptimal secondary to motion artifact. Multiple right posterolateral rib deformities having the appearance of chronic posttraumatic deformities are noted. Multiple left posterolateral rib deformities having the appearance of chronic posttraumatic deformities are visualized. No fractures are noted. Multilevel intervertebral disc space narrowing is noted in the lumbar spine with findings most pronounced at L5-S1 along with multilevel endplate discogenic changes. Prominent endplate sclerosis and erosions are present at the level of L4-L5. No gross paraspinous soft tissue inflammatory changes are visualized at this level. CT/CT abdomen pelvis wo con IMPRESSION: 1. Unenhanced CT of the chest, abdomen and pelvis without evidence of acute traumatic injuries. 2. Cirrhosis. Moderate ascites. Splenomegaly. Portal hypertension. Gynecomastia. Moderate anasarca. 3. L4-L5 endplate erosions. Erosions of the endplates adjacent to the L4-L5 intervertebral disc are present and may represent chronic discogenic endplate changes. Alternatively, active or prior discitis-osteomyelitis could result in similar findings. No adjacent paraspinous soft tissue inflammatory changes to specifically suggest acute discitis-osteomyelitis. As clinically indicated, findings may be further evaluated with MRI to assess for acute discitis-osteomyelitis. 4. Left lower abdominal quadrant rectus hernia containing nonincarcerated small bowel segments and ascites. This result was discussed with Roseanne Vasquez MD by telephone at 01/09/2020 7:19 AM and it was ascertained that the content and urgency of the report was understood at the time of direct communication.
--- NOTE | 2020-01-09 06:20 | PC.NURSE ---
PT MOVED TO 3 FOR TX DUE TO RECENT COVID DX.
[2020-01-09 06:49] LABS: Glucose, Whole Blood 105 mg/dL (60-115)
[2020-01-09 07:09] LABS: Ammonia 47 umol/L (13-55)
[2020-01-09 07:18] LABS: Alanine Aminotransferase 21 U/L (0-40); Albumin Level 2.3 g/dL (3.5-5.0); Alkaline Phosphatase 203 U/L (39-117); Anion Gap 14 (12-20); Aspartate Amino Transferase 59 U/L (5-37); Bilirubin Total 0.4 mg/dL (0.0-1.0); Blood Urea Nitrogen 48 mg/dL (9-16); Calcium 7.5 mg/dL (8.4-10.2); Carbon Dioxide 22 mmol/L (22-29); Chloride 106 mmol/L (96-108); Creatinine Clr Calc Pharmacy 25.4; Estimated Glomerular Filt Rate 16; Glucose Random 111 mg/dL (60-115); Potassium 4.4 mmol/l (3.3-5.1); Sodium 138 mmol/L (135-145); Total Protein 7.4 g/dL (6.5-8.0)
[2020-01-09 07:19] VITALS: BP 167/76; PULSE 95; RESP 24
[2020-01-09 07:31] LABS: Basophils Percent Auto 0.2 % (0-2); Eosinophils Absolute Auto 0.2 X10*3/uL (0.0-0.4); Eosinophils Percent Auto 4.4 % (0-4); Hematocrit 26.5 % (42-52); Hemoglobin 8.3 g/dl (14.0-18.0); Imm Gran Abs Auto 0.02 X10*3/uL (0.00-0.03); Imm Gran Pct Auto 0.5 % (0.0-0.4); Lymphocytes Absolute Auto 0.6 X10*3/uL (1.2-4.9); Lymphocytes Percent Auto 13.1 % (20-40); MANUAL DIFF FLAG SCAN; Mean Corpuscular HGB Conc 31.3 g/dl (31.0-36.0); Mean Corpuscular Hemoglobin 27.3 pg (27.0-33.0); Mean Corpuscular Volume 87.2 fL (80-98); Mean Platelet Volume 11.3 fL (9.4-12.4); Monocytes Absolute Auto 0.6 X10*3/uL (0.1-1.2); Monocytes Percent Auto 12.7 % (2-11); Neutrophils Percent Auto 69.1 % (45-73); Platelet Count 153 X10*3/uL (160-400); Red Blood Count 3.04 X10*6/uL (4.60-5.80); Red Cell Distribution Width 15.8 % (11.0-16.0); SCAN SMEAR FLAG 1; White Blood Count 4.3 X10*3/uL (4.8-10.8)
[2020-01-09 07:37] LABS: Glucose, Whole Blood 109 mg/dL (60-115)
[2020-01-09 07:38] LABS: INTERNATIONAL NORM RATIO 1.2 (0.9-1.1); Prothrombin Time 14.1 SEC (10.8-13.0)
[2020-01-09 07:58] LABS: SLIDE REVIEW VERIFIED
[2020-01-09 11:02] VITALS: BP 179/87; PULSE 100; RESP 22; TEMP 36.5; O2SAT 98
[2020-01-09 12:06] VITALS: BP 160/71; PULSE 95; RESP 18; TEMP 36.7; O2SAT 99
[2020-01-09] MEDS: 0.9 % Sodium Chloride 1,000 ML 999 ML IVCONT (12:22)
[2020-01-09 16:25] VITALS: BP 162/55; PULSE 83; RESP 14; TEMP 36.6; O2SAT 99
[2020-01-09 17:50] LABS: Glucose, Whole Blood 105 mg/dL (60-115)
[2020-01-09] MEDS: LORazepam 2 MG/ML VIAL IVPUSH (19:08)
[2020-01-09] MEDS: LORazepam 2 MG/ML VIAL IM (22:12)
== END 2020-01-09 22:57 | disposition home or self-care (01) ==
PROVIDERS: Student in an Organized Health Care Education/Training Program; Emergency Provider Emergency Medicine
DX: S09.90XA Unspecified injury of head, initial encounter (principal); G44.309 Post-traumatic headache, unspecified, not intractable; M54.2 Cervicalgia; M54.5 Low back pain; I12.9 Hypertensive chronic kidney disease with stage 1 through stage 4 chronic kidney disease, or unspecified chronic kidney disease; E11.22 Type 2 diabetes mellitus with diabetic chronic kidney disease; N18.9 Chronic kidney disease, unspecified; W06.XXXA Fall from bed, initial encounter; Y93.9 Activity, unspecified; Y92.003 Bedroom of unspecified non-institutional (private) residence as the place of occurrence of the external cause; Y99.9 Unspecified external cause status; Z86.19 Personal history of other infectious and parasitic diseases; Z79.899 Other long term (current) drug therapy
CPT/HCPCS: 36415; 70450; 71250; 72125; 74176; 80053; 82140; 82947; 85025; 85610; 93005; 96361; 96372; 96374; 99284; 99285; J2060

== ENCOUNTER 2020-01-16 19:31 | Emergency (ER) | payer OTHER, SELFPAY ==
[2020-01-16 19:44] VITALS: BP 153/77; BP 157/72; PULSE 89; RESP 18; TEMP 37; O2SAT 98; BMI 35.3
--- NOTE | 2020-01-16 20:05 | ED_ITS ---
HPI - General Adult General Chief complaint: General Medical Stated complaint: CRISIS Time Seen by Provider: 01/16/20 21:16 Source: patient, family and EMS Mode of arrival: EMS History of Present Illness HPI narrative: 64-year-old male with past medical history of HIV, hepatitis-C (status post treatment with Harvoni), liver cirrhosis, hypertension, depression, CKD stage 4, peripheral neuropathy, who is on hospice (currently DNR /DNI ) and recently COVID-19 positive 12/16 who is brought in by EMS for wellness concern. patient was screaming outside of his window stating that his was holding the captive and that he needed to be rescued. Police and EMS showed up to the house, and patient was brought to the emergency department for evaluation. Patient denies any shortness of breath, chest pain, palpitations, nausea, vomiting, fevers, chills And abdominal pain. Onset (ago): hour(s) ( Hour before arrival) Radiation: non-radiation Severity: mild Related Data Home Medications Medication Instructions Recorded Confirmed abacavir 600 mg PO DAILY 12/19/19 12/19/19 albuterol sulfate 2.5 mg INHALATION Q4H PRN 12/19/19 12/19/19 ascorbic acid (vitamin C) 250 mg PO BID 12/19/19 12/19/19 atovaquone [Mepron] 750 mg PO BIDWM 12/19/19 12/19/19 diphenhydramine HCl 25 mg PO Q6H PRN 12/19/19 12/19/19 dolutegravir [Tivicay] 50 mg PO BEDTIME 12/19/19 12/19/19 emtricitabine-tenofovir alafen 1 tab PO DAILY 12/19/19 [Descovy] ergocalciferol (vitamin D2) 50,000 unit PO QWEEK 12/19/19 12/19/19 fentanyl 1 patch TRANSDERMAL Q72H 12/19/19 12/19/19 ferrous sulfate 325 mg PO BID 12/19/19 12/19/19 gabapentin 600 mg PO BID 12/19/19 12/19/19 glipizide 2.5 mg PO DAILY 12/19/19 12/19/19 lamivudine 100 mg PO DAILY 12/19/19 12/19/19 methadone 50 mg PO DAILY 12/19/19 nifedipine [Nifedical XL] 60 mg PO DAILY 12/19/19 12/19/19 omeprazole 20 mg PO DAILY 12/19/19 12/19/19 sertraline 150 mg PO DAILY 12/19/19 12/19/19 Allergies Allergy/AdvReac Type Severity Reaction Status Date / Time silver sulfadiazine Allergy Mild BURNING Verified 01/16/20 19:44 [From SILVADENE] erythromycin base Allergy Unknown HIVES Verified 01/16/20 19:44 [Erythromycin Base] Review of Systems Review of Systems: Constitutional: No Fever, No Chills ENT/Mouth: No Ear Pain, No Nasal Congestion, No sore throat Eyes: No Eye Pain, No Swelling, No Redness Cardiovascular: No Chest Pain, No SOB Respiratory: No Cough, No Sputum, No Dyspnea Gastrointestinal: No Nausea, No Vomiting, No Diarrhea, No Hematochezia, No Melena Genitourinary: No Dysuria, No Urinary Frequency, No Hematuria Musculoskeletal: No Myalgias Skin: No Skin Lesions, No rash Neuro: No Weakness, No Numbness, No Paresthesias, No Dizziness, No Headache Psych: positive Anxiety, positive Depression, positive SI/HI Heme/Lymph: No Lymphadenopathy Endocrine: No Polyuria, No Polydipsia Yes all other systems are reviewed and are negative [facility] Past Medical History Attestation statement: The following information was validated with the patient. Source: old records reviewed and obtained from family Medical History Chronic hepatitis C Chronic venous insufficiency CKD (chronic kidney disease) Depression Encephalopathy GERD (gastroesophageal reflux disease) HIV (human immunodeficiency virus infection) HTN (hypertension) Liver cirrhosis Liver failure Non-healing ulcer of lower leg Pancytopenia Peripheral neuropathy Polysubstance abuse Type 2 diabetes mellitus Surgical History History of biopsy Family History Family History Mother Alzheimer disease Father Prostate cancer HTN (hypertension) Social History Social History Alcohol intake: unknown Smoking Status: Never smoker Substance Use Type: IV Drugs and Opiates Advance Directives: No Advance Directives Information Provided: Yes Physical Exam Vital Signs: Vital Signs: Last Vital Signs Temp 98.6 F 01/16/20 19:44 Pulse 89 01/16/20 19:44 Resp 18 01/16/20 19:44 BP 157/72 H 01/16/20 19:44 Pulse Ox 98 01/16/20 19:44 Body Mass Index 35.3 Appearance: Alert. Oriented X2. No acute distress. Eyes: Pupils equal, round and reactive to light. scleral jaundice per baseline ENT: Pharynx normal. Neck: Normal inspection. Neck supple. CVS: Normal heart rate and rhythm. Pulses normal. Respiratory: No respiratory distress. Breath sounds normal. Abdomen: Soft and nontender. distended secondary to ascites Skin: Skin warm and dry. jaundice secondary to end-stage liver disease. Normal skin turgor. Extremities: No lower extremity edema. peripheral vascular disease, bilateral lower extremities discolored secondary to hemosiderin, does have Jobst stockings on Neuro: No motor deficit. No sensory deficit. Course Course Course Narrative: 64-year-old patient presents with situational problem at home. States that his has been keeping him captive and has been in pr esenting him. He is asking to go home because he does not have any medical problems at this time, and does not describe any suicidal ideation, homicidal ideation, and auditory and visual hallucinations. Discussion with his Kathie, states that after his visit on 12/19/2019 for a fall she has been securing his bed and chair with pillows and blankets to prevent him from falling. She states that patient has been gradually declining with mental status based on his medical condition, she does understand that his condition is only going to worsen, he is a DNR DNI and is on hospice. He does have hepatitis, HIV, end-stage liver disease, as serosa and ascites. Today, patient was screaming outside the window next to his bed stating that he was being held captive, someone in the parking lot called 911 and when police arrived to the apartment he stated that he wanted to leave. Patient was brought to the emergency department for evaluation. The does not have any concerns with him returning home, she does understand that his disease process and encephalopathy is progressing. Plan of care is to discharge patient to home. Medical Decision Making Differential Diagnosis Differential Diagnosis: situational problem at home Medical Records Medical records reviewed: Yes I reviewed the patient's medical records. Lab Data Lab results reviewed: Yes I reviewed the patient's lab results. Labs: Lab Results 01/16/20 01/16/20 Range/Units 20:45 20:45 Urine Color YELLOW Urine Appearance CLEAR Urine pH 7.0 (5.0-8.0) Ur Specific [place] 1.015 (1.005-1.025) Urine Protein 2+ H (NEG-TRACE) MG/DL Urine Glucose (UA) NEG (NEG) MG/DL Urine Ketones NEG (NEG) MG/DL Urine Blood 3+ H (NEG) Urine Nitrite NEG (NEG) Ur Leukocyte Esterase NEG (NEG) Urine RBC 30-49 H (0) /HPF Urine WBC 0 (0-4) /HPF Ur Squamous Epith Cells NONE /LPF Urine Bacteria 1+ /LPF Urine Opiates Screen POSITIVE H (Not Detect) Ur Barbiturates Screen Not Detected (Not Detect) Ur Phencyclidine Scrn Not Detected (Not Detect) Ur Amphetamines Screen Not Detected (Not Detect) U Benzodiazepines Scrn Not Detected (Not Detect) Urine Cocaine Screen Not Detected (Not Detect) U Marijuana (THC) Screen Not Detected (Not Detect) Discharge Plan Discharge Clinical Impression: Encephalopathy CKD (chronic kidney disease) Qualifiers: Chronic kidney disease stage: stage 4 (severe) Qualified Code(s): N18.4 - Chronic kidney disease, stage 4 (severe) Patient Disposition: Home, Self-Care Instructions: Hepatic Encephalopathy (DC) Additional Instructions: please follow-up with hospice for medication adjustment. Thank you for choosing this emergency department for evaluation. Please follow-up with primary care physician as needed. Return to the emergency department for any new, concerning, or worsening symptoms. Prescriptions: No Action gabapentin 600 mg Tablet 600 mg PO BID RF: 0 sertraline 100 mg Tablet 150 mg PO DAILY RF: 0 ergocalciferol (vitamin D2) 50,000 unit Tablet 50,000 unit PO QWEEK RF: 0 ascorbic acid (vitamin C) 250 mg Tablet 250 mg PO BID RF: 0 ferrous sulfate 325 mg (65 mg iron) Tablet 325 mg PO BID RF: 0 omeprazole 20 mg Capsule,Delayed Release(Dr/Ec) 20 mg PO DAILY RF: 0 Descovy 200-25 mg Tablet 1 tab PO DAILY RF: 0 albuterol sulfate 2.5 mg /3 mL (0.083 %) Solution For Nebulization 2.5 mg INHALATION Q4H PRN (Reason: Shortness Of Breath) RF: 0 diphenhydramine HCl 25 mg Tablet 25 mg PO Q6H PRN (Reason: Allergic Symptoms) RF: 0 methadone 10 mg/mL Concentrate 50 mg PO DAILY RF: 0 atovaquone [Mepron] 750 mg/5 mL Suspension 750 mg PO BIDWM RF: 0 Tivicay 50 mg Tablet 50 mg PO BEDTIME RF: 0 fentanyl 50 mcg/hr Patch 72 Hour 1 patch TRANSDERMAL Q72H RF: 0 nifedipine [Nifedical XL] 60 mg Tablet Extended Release 24hr 60 mg PO DAILY RF: 0 glipizide 2.5 mg Tablet Extended Release 24hr 2.5 mg PO DAILY RF: 0 lamivudine 10 mg/mL Solution 100 mg PO DAILY RF: 0 abacavir 300 mg Tablet 600 mg PO DAILY RF: 0 Interventions: ED Discharge Assessment Last Done: 01/16/20 22:04 Discharge Date/Time: 01/16/20 22:05
[2020-01-16 21:12] LABS: Glucose Urine UA NEG (NEG); Leukocyte Esterase Urine NEG (NEG); Nitrite Urine NEG (NEG); Specific Gravity - Urine 1.015 (1.005-1.025); Urine Blood 3+ (NEG); Urine Ketones NEG (NEG); Urine Protein 2+ MG/DL (NEG-TRACE)
[2020-01-16 21:13] LABS: Appearance Urine CLEAR; Color Urine YELLOW
[2020-01-16 21:21] LABS: Bacteria Urine 1+ /LPF; RBC Urine 30-49 /HPF (0); WBC Urine 0 /HPF (0-4)
[2020-01-16 21:23] LABS: Amphetamine Screen Urine Not Detected (Not Detect); Barbiturates, Urine Not Detected (Not Detect); Benzodiazepines Screen Urine Not Detected (Not Detect); Cannabinoid Screen Urine Not Detected (Not Detect); Cocaine Screen Urine Not Detected (Not Detect); Opiate Screen Urine POSITIVE (Not Detect); Phencyclidine Screen Urine Not Detected (Not Detect)
== END 2020-01-16 22:05 | disposition home or self-care (01) ==
PROVIDERS: Nurse Practitioner Family; Emergency Provider Emergency Medicine Emergency Medical Services
DX: G93.40 Encephalopathy, unspecified (principal); I12.9 Hypertensive chronic kidney disease with stage 1 through stage 4 chronic kidney disease, or unspecified chronic kidney disease; N18.4 Chronic kidney disease, stage 4 (severe); Z21 Asymptomatic human immunodeficiency virus [HIV] infection status; Z79.899 Other long term (current) drug therapy; Z86.19 Personal history of other infectious and parasitic diseases
CPT/HCPCS: 80307; 81001; 81003; 99283

== ENCOUNTER 2020-01-21 17:00 | Emergency (ER) | payer MEDICARE, SELFPAY ==
[2020-01-21 17:13] VITALS: BP 160/95; PULSE 95; RESP 20; TEMP 36.8; O2SAT 98; BMI 39.9
--- NOTE | 2020-01-21 17:50 | PC.NURSE ---
2 fentanyl patches on right back, 1- 75mcg 1- 100mcg
[2020-01-21 17:54] VITALS: BP 167/73; PULSE 98; RESP 20; TEMP 38.2; O2SAT 96
--- NOTE | 2020-01-21 18:46 | ED.GENADULT ---
HPI - General Adult General Chief complaint: Weakness Stated complaint: GLOBAL PAIN Time Seen by Provider: 01/21/20 18:32 Source: patient and EMS Mode of arrival: EMS Limitations: altered mental status History of Present Illness HPI narrative: Patient comes to the emergency room via EMS. Patient is a 64-year-old male with past medical history of HIV, hepatitis-C, liver cirrhosis, depression, hypertension, CKD , who is currently on hospice. Patient recently test positive for COVID-19 on December 16. Patient was sent to the emergency room at home they cannot control the patient's pain. Patient is on 2 patches on fentanyl around the clock. Here in the emergency room. Patient is encephalopathic (chronic), unable to give any history. Unclear if patient has any pain, patient is sleeping MD complaint: Pain control Related Data Home Medications Medication Instructions Recorded Confirmed abacavir 600 mg PO DAILY 12/19/19 12/19/19 albuterol sulfate 2.5 mg INHALATION Q4H PRN 12/19/19 12/19/19 ascorbic acid (vitamin C) 250 mg PO BID 12/19/19 12/19/19 atovaquone [Mepron] 750 mg PO BIDWM 12/19/19 12/19/19 diphenhydramine HCl 25 mg PO Q6H PRN 12/19/19 12/19/19 dolutegravir [Tivicay] 50 mg PO BEDTIME 12/19/19 12/19/19 emtricitabine-tenofovir alafen 1 tab PO DAILY 12/19/19 [Descovy] ergocalciferol (vitamin D2) 50,000 unit PO QWEEK 12/19/19 12/19/19 fentanyl 1 patch TRANSDERMAL Q72H 12/19/19 12/19/19 ferrous sulfate 325 mg PO BID 12/19/19 12/19/19 gabapentin 600 mg PO BID 12/19/19 12/19/19 glipizide 2.5 mg PO DAILY 12/19/19 12/19/19 lamivudine 100 mg PO DAILY 12/19/19 12/19/19 methadone 50 mg PO DAILY 12/19/19 nifedipine [Nifedical XL] 60 mg PO DAILY 12/19/19 12/19/19 omeprazole 20 mg PO DAILY 12/19/19 12/19/19 sertraline 150 mg PO DAILY 12/19/19 12/19/19 Allergies Allergy/AdvReac Type Severity Reaction Status Date / Time silver sulfadiazine Allergy Mild BURNING Verified 01/21/20 17:13 [From SILVADENE] erythromycin base Allergy Unknown HIVES Verified 01/21/20 17:13 [Erythromycin Base] Review of Systems Review of Systems: Yes Unobtainable due to mental condition [facility] Past Medical History Medical History Chronic hepatitis C Chronic venous insufficiency CKD (chronic kidney disease) Depression Encephalopathy GERD (gastroesophageal reflux disease) HIV (human immunodeficiency virus infection) HTN (hypertension) Liver cirrhosis Liver failure Non-healing ulcer of lower leg Pancytopenia Peripheral neuropathy Polysubstance abuse Type 2 diabetes mellitus Surgical History History of biopsy Family History Family History Mother Alzheimer disease Father Prostate cancer HTN (hypertension) Social History Social History Alcohol intake: unknown Smoking Status: Never smoker Substance Use Type: IV Drugs and Opiates Advance Directives: No Advance Directives Information Provided: Yes Physical Exam Vital Signs: Vital Signs: Last Vital Signs Temp 100.8 F H 01/21/20 17:54 Pulse 96 01/21/20 20:00 Resp 18 01/21/20 20:00 BP 156/72 H 01/21/20 20:00 Pulse Ox 98 01/21/20 20:00 Body Mass Index 39.9 Appearance: Alert. Very confused, encephalopathic, ill-appearing Eyes: Pupils equal, round and reactive to light. ENT: Pharynx normal. Neck: N Neck supple. No lymph nodes noted. No crepitus CVS: Normal heart rate and rhythm. Pulses normal. Normal S1 and S2 Respiratory: No respiratory distress. Breath sounds normal. No Wheezing. No rales Abdomen: Soft distended, seems to have a thyroid is, nontender Skin: Skin warm and dry. Extremities: No Lacerations. No Rash Neuro: Patient is confused, keeps yelling for people who were not in the room, No sensory deficit. Moving all extermities. No slurred speech. Course Course Course Narrative: Patient's nurse call and was, she can no longer take care of him, consult for case management pending. Sign-out given to Dr. Hernandez Discharge Plan Discharge Clinical Impression: Encephalopathy Prescriptions: No Action gabapentin 600 mg Tablet 600 mg PO BID RF: 0 sertraline 100 mg Tablet 150 mg PO DAILY RF: 0 ergocalciferol (vitamin D2) 50,000 unit Tablet 50,000 unit PO QWEEK RF: 0 ascorbic acid (vitamin C) 250 mg Tablet 250 mg PO BID RF: 0 ferrous sulfate 325 mg (65 mg iron) Tablet 325 mg PO BID RF: 0 omeprazole 20 mg Capsule,Delayed Release(Dr/Ec) 20 mg PO DAILY RF: 0 Descovy 200-25 mg Tablet 1 tab PO DAILY RF: 0 albuterol sulfate 2.5 mg /3 mL (0.083 %) Solution For Nebulization 2.5 mg INHALATION Q4H PRN (Reason: Shortness Of Breath) RF: 0 diphenhydramine HCl 25 mg Tablet 25 mg PO Q6H PRN (Reason: Allergic Symptoms) RF: 0 methadone 10 mg/mL Concentrate 50 mg PO DAILY RF: 0 atovaquone [Mepron] 750 mg/5 mL Suspension 750 mg PO BIDWM RF: 0 Tivicay 50 mg Tablet 50 mg PO BEDTIME RF: 0 fentanyl 50 mcg/hr Patch 72 Hour 1 patch TRANSDERMAL Q72H RF: 0 nifedipine [Nifedical XL] 60 mg Tablet Extended Release 24hr 60 mg PO DAILY RF: 0 glipizide 2.5 mg Tablet Extended Release 24hr 2.5 mg PO DAILY RF: 0 lamivudine 10 mg/mL Solution 100 mg PO DAILY RF: 0 abacavir 300 mg Tablet 600 mg PO DAILY RF: 0
[2020-01-21 19:10] VITALS: BP 141/72; PULSE 99; RESP 16
--- NOTE | 2020-01-21 19:10 | PC.NURSE ---
PT RESTLESS IN STRETCHER, PT AWAKE AND MOVING, TAKING OFF GOWN AND BLANKETS CONSTANTLY. PT WITH EYES CLOSED AND MAKING A GRUNTING/THROAT CLEARING NOISE. PT NOT FOLLOWING SIMPLE COMMANDS. SKIN W/D/PALE. RESPIRATIONS EASY, N/L. PT IS NOT COUGHING. PT C/O PAIN TO BACK AREA UNABLE TO RATE PAIN. 2 FENTANYL PATCHES TO RIGHT UPPER BACK AREA INTACT 100MG AND 75MG PATCHES. WITNESSED WITH KAMLA CORDERO.
[2020-01-21] MEDS: Morphine Sulfate 2 MG/ML CARTRIDGE 1 MG IM (19:21)
--- NOTE | 2020-01-21 19:39 | PC.NURSE ---
Pt moaning in stretcher, restless. VS obtained. Pt medicated as per emar for pain. Pt in NAD.
[2020-01-21 20:00] VITALS: BP 156/72; PULSE 96; RESP 18; O2SAT 98
--- NOTE | 2020-01-21 20:33 | PC.NURSE ---
PT IN NAD. PT MOANING AND THEN FALLS BACK TO SLEEP. SPOKE WITH PT'S CAREGIVER DINO STATES IM UNABLE TO GET [facility] COMFORTABLE FOR THE PAST 36 HRS. PT HAS BEEN DELUSIONAL AND MOANING LOUDLY AND UNABLE TO GET OUT OF PAIN.
[2020-01-21] MEDS: HYDROmorphone HCl 2 MG/ML VIAL IM (21:39)
[2020-01-22] VITALS (8 sets, daily range): BP systolic 132–151; BP diastolic 62–76; PULSE 79–97; RESP 14–18; TEMP 37–38.5; O2SAT 96–99
[2020-01-22] MEDS: LORazepam 1 MG TABLET 2 MG PO (01:49)
--- NOTE | 2020-01-22 01:54 | PC.NURSE ---
PT RESTING IN STRETCHER. PT CONFUSED AT TIMES AND RAMBLING ABOUT UNKNOWN SUBJECTS. PT CLEANED UP AND CLEAN LINENS APPLIED TO HOSPITAL BED. PT RATING PAIN TO MY WHOLE BODY HURTS
--- NOTE | 2020-01-22 04:15 | PC.NURSE ---
PT MOANING LOUDLY, PT C/O PAIN TO FEET, ABDOMINAL, AND UPPER BACK. MD AWARE. PT SLEEPING AND WAKES UP EASILY AND C/O PAIN ALL OVER .
[2020-01-22] MEDS: HYDROmorphone HCl 2 MG/ML VIAL IM ×2 (04:31→12:34)
--- NOTE | 2020-01-22 06:41 | PC.NURSE ---
PT RESTING IN HOSPITAL BED, OPENS EYES TO VERBAL STIMULI, RESPIRATIONS EASY, N/L. SKIN WARM, DRY/PALE. PT MOANING IN BED. REPORT GIVEN TO KAMLA QUEVEDO.
--- NOTE | 2020-01-22 08:05 | PC.NURSE ---
PT INCONTINENT OF LARGE AMT SOFT STOOL AND URINE. ABLE TO DRINK WATER. ASKING TO GO HOME. SPOKE TO EX- ON PHONE
--- NOTE | 2020-01-22 08:15 | PC.NURSE ---
SPOKE WITH PT'S EX- AND HCP. REFERRED HER TO CASE MGMT. ELLYRN WILL CALL HER BACK
--- NOTE | 2020-01-22 11:32 | MHC.CM.ED ---
Received case management consult overnight. Patient came to ER due to pain. Patient is active with [facility]. Spoke with Elba from [facility] via telephone at [phone]. Patient has 24 hour care. Ex /HCP is Kathie. Kathie appears to be experiencing caregiver fatigue and may benefit from patient going to a facility under correction care. Kathie in ER waiting room. Met with Kathie to discuss discharge plan. Her primary concern is that patient's pain was not being managed at home. T/W spoke with Elba about this. Elba is going to reach out to the [facility] provider to discuss increasing pain medication. Kathie states patient goes to [facility] every 2 weeks for paracentesis. He is scheduled for one this Monday. She is requesting it be done here today. This was discussed with Dr Brown. This is not an option at this time. Kathie is going to reach out to Elba at [facility] to verify pain management plan for patient. Continue to monitor for d/c needs.
--- NOTE | 2020-01-22 12:37 | MHC.CM.ED ---
Received telephone call from ex /HCP, Kathie. After speaking with hospice, Kathie feels patient needs placement. [facility] is first choice. Waiting to hear from [facility], [facility], [facility], [facility], [facility], [facility] and [facility]. Continue to monitor for d/c needs.
--- NOTE | 2020-01-22 13:58 | PC.NURSE ---
Pt yelling out frequently, confused, repositioned several times for comfort, asking to walk, pt high fall risk- redirected.
[2020-01-22] MEDS: Acetaminophen Oral Liquid 650 MG/20.3 ML SOLUTION PO (14:40)
--- NOTE | 2020-01-22 14:45 | PC.NURSE ---
Pt nodding off during conversation, is alert and oriented to self only. Pending SNF /hospice placement. Provider aware of temp, plan to treat fever w/ tylenol and motrin.
--- NOTE | 2020-01-22 15:06 | MHC.CM.ED ---
Patient received IM Dilaudid around noon. [facility] is concerned about patient's pain control. Per Fidelina at [facility], patient can't be on Methadone and must be able to obtain appropriate pain relief from oral medication. Per Kathie, ex /HCP, patient is no longer on Methadone. Anticipate patient will remain in ER overnight. Continue to monitor for d/c needs.
[2020-01-22] MEDS: Lactulose 20 GM/30 ML SOLUTION PO ×2 (17:48→21:39)
[2020-01-22] MEDS: fentaNYL 75 MCG PATCH.TD72 TRANSDERMA (17:48)
[2020-01-22] MEDS: fentaNYL 100 MCG PATCH.TD72 TRANSDERMA (17:48)
[2020-01-22] MEDS: HYDROmorphone HCl 2 MG TABLET 8 MG PO ×2 (20:44→23:38)
--- NOTE | 2020-01-22 21:32 | PC.NURSE ---
Spoke with pharmacy to change morphine concentration, verbal order obtained from [facility] security installer and pharmacy verified. pt incont of stool and urine multiple times, morris care provided, linen changed multiple times. Pt yelling out continouslyy, confused, attempted to reorient w/ little effect. Pt becoming verbally agressive to this rn, im going to flip you , reminded of manners. pt repositioned for non-pharm pain management. plan to medicate w/ prns
[2020-01-22] MEDS: Morphine Sulfate Oral Sol 10 MG/5 ML SOLUTION PO (21:39)
--- NOTE | 2020-01-22 22:05 | PC.NURSE ---
Pt spit up spit out morphine, wasted in pyxis, medicated w/ morphine for pain. repositioned. given po fluids. used urinal.
--- NOTE | 2020-01-23 00:47 | PC.NURSE ---
temp rechecked and resulted 101.9, dr metz made aware and plan to medicate with tylenol suppository for fever control, pt mentation off, asking about getting up to the machines pt redirected however not very successfully. pt repositioned
[2020-01-23 00:48] VITALS: TEMP 38.8
[2020-01-23] MEDS: Lactulose 20 GM/30 ML SOLUTION PO (01:38)
[2020-01-23] MEDS: HYDROmorphone HCl 2 MG TABLET 8 MG PO ×2 (03:52→11:13)
--- NOTE | 2020-01-23 08:56 | MHC.CM.ED ---
Patient remains in ER. Only requiring PO pain medication. Clinical updates sent to [facility]. Covid swab pending. Continue to monitor for d/c needs.
--- NOTE | 2020-01-23 09:14 | PC.NURSE ---
pt repositioned in bed, redirected.
[2020-01-23 09:44] LABS: COVID-19 Test Negative (Negative)
--- NOTE | 2020-01-23 09:54 | PC.NURSE ---
PT ON PHONE WITH EX WHO IS HCP TRYING TO TALK ABOUT PLAN TO GO TO [facility]
--- NOTE | 2020-01-23 10:51 | MHC.CM.ED ---
Fidelina from [facility] on site to see patient. Patient will need an exemption letter from [employer] due to substance abuse history. [employer] submitted. Continue to monitor for d/c needs.
--- NOTE | 2020-01-23 11:18 | PC.NURSE ---
pt medicated per emar. repositioned in bed. pt is rude and using foul language. not redirectable. pt offered food, liquid and lactulose and refused.
--- NOTE | 2020-01-23 12:59 | MHC.CM.ED ---
Patient remains in ER. Plan is for patient to go to [facility] for end of life care and pain management. Continue to monitor for d/c needs.
--- NOTE | 2020-01-23 14:33 | PC.NURSE ---
linen changed. pt cleaned up and repositioned. pt given more gingerale and offered sandwhich. pt to sleep at this time.
--- NOTE | 2020-01-23 15:39 | MHC.CM.ED ---
Still waiting for [employer] letter. [facility] will be able to offer patient a bed tomorrow (Monday) once letter is obtained. Continue to monitor for d/c needs.
--- NOTE | 2020-01-23 17:15 | PC.NURSE ---
Patient offered his lacutulose which he refused.
--- NOTE | 2020-01-23 19:06 | PC.NURSE ---
Patient is yelling and swearing and stating he wants to use the phone. Patient has the cordless phone which needs to be charged but he wont give the staff the phone.
--- NOTE | 2020-01-23 21:15 | PC.NURSE ---
Patient offered his lactulose medication and patient refused.
[2020-01-24] VITALS: BP 108/78; PULSE 81; RESP 15; O2SAT 95
[2020-01-24] MEDS: HYDROmorphone HCl 2 MG TABLET 8 MG PO ×3 (01:26→12:49)
--- NOTE | 2020-01-24 02:15 | PC.NURSE ---
Patient offered lactulose and refused again. Patient stated that he would take his lactulose at five o'clock
[2020-01-24 02:28] VITALS: BP 108/78; PULSE 81; RESP 15; TEMP 37
[2020-01-24 04:03] VITALS: BP 141/58; PULSE 74; RESP 15; O2SAT 98
[2020-01-24] MEDS: Lactulose 20 GM/30 ML SOLUTION PO (06:01)
[2020-01-24] MEDS: Morphine Sulfate Oral Sol 10 MG/5 ML SOLUTION PO (06:01)
--- NOTE | 2020-01-24 07:05 | PC.NURSE ---
REPORT TAKEN FORM JOSE CASON. PT AWAKE LAYING IN BED, ASKING WHEN HE WILL BE LEAVING. INFORMED PT WILL SPEAK WITH CM WHEN THEY ARRIVE AND LET HIM KNOW.
--- NOTE | 2020-01-24 08:39 | PC.NURSE ---
PT CONTINUOUSLY YELLING OUT FOR RN. CONTINUES TO STATE HE IS UNCOMFORTABLE DUE TO THE HOSPITAL BED, HAS BEEN REPOSITIONED. CONTINUES TO ASK WHAT TIME HE WILL BE DC, INFORMED PT AGAIN THAT THERE IS NOT A SET TIME AT THIS TIME AND WILL LET HIM KNOW WHEN TIME IS SCHEDULED. PT /HCP CALLED EARLIER STATING PT PARACENTESIS APPOINTMENT AT [facility] TODAY AT 930 AND ASKING IF PT WOULD BE TRANSPORTED THERE. INFORMED HER THAT WE WILL NOT BE TRANSPORTING PT TO [facility], ONLY TRANSFER IS FOR PT TO GO TO [facility].
[2020-01-24 09:07] VITALS: BP 144/48; PULSE 76; RESP 18; TEMP 36.7; O2SAT 99
--- NOTE | 2020-01-24 09:54 | MHC.CM.ED ---
[employer] letter obtained. Per Fidelina at [facility], patient can leave at 130pm. [facility] booked. Med nec with chart. Patient, ex /hcp Ginette Vázquez DREDGE BOAT ENGINEER and Harriett RN aware. [facility] also made aware. Continue to monitor for d/c needs.
--- NOTE | 2020-01-24 10:41 | PC.NURSE ---
pt continues to call out to staff. pt asking to get up and sit on side of bed. pt very weak, unable to assist to sit on edge of bed. have told pt this repeatedly. medicated pt for pain. pt did not want to take lactulose due to loose BMs. plan is for transfer to [facility] at 130pm.
--- NOTE | 2020-01-24 11:08 | PC.NURSE ---
Pt has been repositioned in bed and given a meal. HE makes no attempt to assist with repositioning, is a total assist. HE is able to self feed.
[2020-01-24 11:30] VITALS: BP 144/78; PULSE 77; RESP 16
[2020-01-24 14:26] VITALS: PULSE 16
--- NOTE | 2020-01-24 14:31 | PC.NURSE ---
pt has been yelling out, yelling for staff to come into room and move him. He has been repositioned multiple times and then slides down in the bed and puts his feet over the rails. Pt very anxious about EMS arriving to bring him to a SNF. EMS is delayed, Pt has been updated about the delay and reassured that he will be transported to SNF. Pt asking for medication, does not report he is in pain. Will continue to monitor and reassure as needed.
== END 2020-01-24 15:07 | disposition skilled nursing facility (03) ==
PROVIDERS: Emergency Medicine; Emergency Provider Emergency Medicine
DX: G93.40 Encephalopathy, unspecified (principal); R53.1 Weakness; I12.9 Hypertensive chronic kidney disease with stage 1 through stage 4 chronic kidney disease, or unspecified chronic kidney disease; E11.22 Type 2 diabetes mellitus with diabetic chronic kidney disease; N18.9 Chronic kidney disease, unspecified; Z21 Asymptomatic human immunodeficiency virus [HIV] infection status; Z79.899 Other long term (current) drug therapy; Z20.828 Contact with and (suspected) exposure to other viral communicable diseases
CPT/HCPCS: 87635; 99284; J1170; J2270

== ENCOUNTER 2020-04-02 13:38 | Emergency (ER) | payer OTHER, SELFPAY ==
[2020-04-02 13:53] VITALS: BP 155/88; BP 156/64; PULSE 79; PULSE 88; RESP 16; TEMP 36.8; O2SAT 100; BMI 41.1
--- NOTE | 2020-04-02 14:12 | ED_ITS ---
HPI - General Adult General Chief complaint: General Medical Stated complaint: ABD PAIN Time Seen by Provider: 04/02/20 13:57 Source: patient, EMS and old records reviewed Mode of arrival: EMS Limitations: no limitations History of Present Illness HPI narrative: sent in for paracentesis, I think I need one. states he just had paracentesis [address] [facility] complaint: wants paracentesis Onset (ago): day(s) (2) Location: abdomen Radiation: non-radiation Severity: mild Quality: other (denies any pain to me) Relieving factors: none Exacerbating factors: none Associated symptoms: denies other symptoms Related Data Home Medications Medication Instructions Recorded Confirmed albuterol sulfate 2.5 mg INHALATION Q4H PRN 12/19/19 01/22/20 chlorpromazine 50 mg PO Q4H PRN 01/22/20 01/22/20 fentanyl 75 mcg TRANSDERMAL Q72H 01/22/20 01/22/20 fentanyl 100 mcg TRANSDERMAL Q72H 01/22/20 01/22/20 hydromorphone 8 mg PO Q2H PRN 01/22/20 01/22/20 hyoscyamine sulfate [Levsin] 0.125 mg PO Q4H PRN 01/22/20 01/22/20 lactulose 20 g PO Q4H 01/22/20 01/22/20 morphine concentrate 10 mg PO Q1H PRN 01/22/20 01/22/20 Allergies Allergy/AdvReac Type Severity Reaction Status Date / Time silver sulfadiazine Allergy Mild BURNING Verified 01/21/20 17:13 [From SILVADENE] erythromycin base Allergy Unknown HIVES Verified 01/21/20 17:13 [Erythromycin Base] Review of Systems Review of Systems: Constitutional : No Weight loss, No Fever, No Chills ENT/Mouth : No sore throat, No Rhinorrhea Eyes: No Swelling, No Redness Cardiovascular : No Chest Pain, No SOB, NoEdema Respiratory : No Cough, No Sputum, No Wheezing Gastrointestinal :no Nausea, no Vomiting, no Diarrhea, no abdominal Pain, No Hematochezia, No Melena Genitourinary : No Dysuria, No Urinary Frequency, No Hematuria, No Urgency Musculoskeletal : No joint pain, No Myalgias, No Joint Swelling Skin : pos Skin Lesions, No rash Neuro : No Weakness, No Numbness, No Dizziness, No Headache Psych : No Anxiety/Panic, No Depression Heme/Lymph: No Bruising, No Lymphadenopathy Endocrine : No Polyuria, No Polydipsia All other systems reviewed and are negative. [facility] Past Medical History Attestation statement: The following information was validated with the patient. Source: old records reviewed Medical History Chronic hepatitis C Chronic venous insufficiency CKD (chronic kidney disease) Depression Encephalopathy GERD (gastroesophageal reflux disease) HIV (human immunodeficiency virus infection) HTN (hypertension) Liver cirrhosis Liver failure Non-healing ulcer of lower leg Pancytopenia Peripheral neuropathy Polysubstance abuse Type 2 diabetes mellitus Surgical History History of biopsy Family History Family History Mother Alzheimer disease Father Prostate cancer HTN (hypertension) Social History Social History Alcohol intake: never Smoking Status: Never smoker Smoked in Last 30 Days: No Use of substances other than those prescribed or required for medical reasons: No Substance Use Type: IV Drugs and Opiates Advance Directives: Yes Advance Directives Information Provided: Yes Advance Directives on File: No Physical Exam Vital Signs: Vital Signs: Last Vital Signs Temp 98.3 F 04/02/20 13:53 Pulse 79 04/02/20 13:53 Resp 16 04/02/20 13:53 BP 156/64 H 04/02/20 13:53 Pulse Ox 100 04/02/20 13:53 Body Mass Index 41.1 Appearance: Alert. Oriented X3. No acute distress. Eyes: Pupils equal, round and reactive to light. ENT: Pharynx normal. Neck: Normal inspection. Neck supple. CVS: Normal heart rate and rhythm. Pulses normal. Respiratory: No respiratory distress. Breath sounds normal. 100% on RA Abdomen: Soft and nontender. Mild fluid Skin: Skin warm and dry. Normal skin color. Normal skin turgor. Extremities: legs wrapped chronic weeping ulcers of LE. No calf ttp Neuro: Oriented X 3. No motor deficit. No sensory deficit. Course Course Course Narrative: patient is in no distress, asking for food, 100% on RA< clear lungs - he does not need emergent paracentesis at this time, he was spoken to by CM and he states he doesn't want to revoke his hospice. Medical Decision Making MDM Narrative Medical decision making narrative: patient with HIV, HTN, opiate use disorder on hospice came here for paracentesis but he has no abdominal ttp he is asking for food, 100% on RA, he does not require emergent paracentesis at this time and can be managed as an outpatient - CM involved as he initially told myself and charge accounts audit clerk he wanted to revoke his hospice he then denied to neil from CM Lab Data Result diagrams: 04/02/20 14:57 04/02/20 14:56 Discharge Plan Discharge Clinical Impression: Advanced cirrhosis of liver Patient Disposition: Home, Self-Care Additional Instructions: return to ED for any worsening symptoms or concerns Jeremie was in no distress, 100% on RA, clear lungs, Chest xray clear can be managed as outpatient. No indication for emergent paracentesis Prescriptions: No [facility] albuterol sulfate 2.5 mg /3 mL (0.083 %) Solution For Nebulization 2.5 mg INHALATION Q4H PRN (Reason: Shortness Of Breath) RF: 0 hydromorphone 2 mg Tablet 8 mg PO Q2H PRN (Reason: Pain) RF: 0 fentanyl 100 mcg/hr Patch 72 Hour 100 mcg TRANSDERMAL Q72H RF: 0 hyoscyamine sulfate [Levsin] 0.125 mg Tablet 0.125 mg PO Q4H PRN (Reason: ORAL SECRETIONS) RF: 0 fentanyl 75 mcg/hr Patch 72 Hour 75 mcg TRANSDERMAL Q72H RF: 0 chlorpromazine 50 mg Tablet 50 mg PO Q4H PRN (Reason: Anxiety) RF: 0 morphine concentrate 20 mg/mL Syringe 10 mg PO Q1H PRN (Reason: Pain) RF: 0 lactulose 10 gram/15 mL Solution 20 g PO Q4H RF: 0
--- NOTE | 2020-04-02 14:17 | XR_ITS ---
EXAMINATION: XR CHEST CLINICAL INFORMATION: Weakness COMPARISON: Chest radiographs 12/19/2019, CT chest 01/09/2020 TECHNIQUE: Portable upright AP view of the chest was obtained. FINDINGS: There are low lung volumes. Cardiopericardial silhouette is within normal. There is right apical azygous fissure/lobe representing normal congenital variant. There is even distribution of the vascularity without Maximino B lines. No lobar or segmental airspace consolidation. Disc atelectasis right base. XR/XR chest 1V IMPRESSION: Low lung volumes. Disc atelectasis right base.
[2020-04-02 15:04] LABS: Eosinophils Percent Auto 1.9 % (0-4); Imm Gran Abs Auto 0.03 X10*3/uL (0.00-0.03); Imm Gran Pct Auto 1.4 % (0.0-0.4); Lymphocytes Absolute Auto 0.3 X10*3/uL (1.2-4.9); Lymphocytes Percent Auto 12.1 % (20-40); MANUAL DIFF FLAG SCAN; Mean Corpuscular HGB Conc 30.6 g/dl (31.0-36.0); Mean Corpuscular Hemoglobin 27.2 pg (27.0-33.0); Mean Corpuscular Volume 88.7 fL (80-98); Mean Platelet Volume 8.5 fL (9.4-12.4); Monocytes Absolute Auto 0.2 X10*3/uL (0.1-1.2); Monocytes Percent Auto 9.8 % (2-11); Neutrophils Absolute Auto 1.6 X10*3/uL (2.0-8.3); Neutrophils Percent Auto 74.8 % (45-73); Red Blood Count 1.95 X10*6/uL (4.60-5.80); SCAN SMEAR FLAG 1
[2020-04-02 15:09] LABS: INTERNATIONAL NORM RATIO 1.2 (0.9-1.1)
[2020-04-02 15:12] LABS: Partial Thromboplastin Time 38.1 SEC (24.1-38.0)
[2020-04-02 15:19] LABS: Platelet Count 83 X10*3/uL (160-400); White Blood Count 2.1 X10*3/uL (4.8-10.8)
[2020-04-02 15:21] LABS: Ammonia 27 umol/L (13-55)
[2020-04-02 15:22] LABS: Hematocrit 17.3 % (42-52); Hemoglobin 5.3 g/dl (14.0-18.0)
[2020-04-02 15:26] LABS: COVID-19 Test Negative (Negative)
--- NOTE | 2020-04-02 15:31 | MHC.CM.PN ---
Informal CM consult: Met with pt at the request of ED MD to discuss ? Hospice revocation. Pt states he is active with [facility] and receives comfort paracentisis as part of his care plan. He states he does not have to revoke his Hospice to receive this treatment. Call placed to [facility]: spoke with pt's RN Elba who states pt has palliative taps every 2 weeks at [facility] and can opt for prn taps should he need them. This is part of the pt's Hospice plan of care. Pt states he has privately hired [employer] in addition to [facility] management from [facility]. He will need transportation home. Information relayed to ED MD
[2020-04-02 15:32] LABS: B Type Natriuretic Peptide 152 pg/mL (<100)
[2020-04-02 15:35] LABS: Alanine Aminotransferase 20 U/L (0-40); Albumin Level 2.4 g/dL (3.5-5.0); Alkaline Phosphatase 187 U/L (39-117); Anion Gap 12 (12-20); Aspartate Amino Transferase 35 U/L (5-37); Bilirubin Direct 0.2 mg/dL (0.0-0.5); Bilirubin Total 0.4 mg/dL (0.0-1.0); Blood Urea Nitrogen 73 mg/dL (9-16); Calcium 7.5 mg/dL (8.4-10.2); Carbon Dioxide 20 mmol/L (22-29); Chloride 107 mmol/L (96-108); Estimated Glomerular Filt Rate 11; Glucose Random 102 mg/dL (60-115); Lipase 43 U/L (8-78); Magnesium 1.9 mg/dL (1.6-2.6); Potassium 5.4 mmol/l (3.3-5.1); Sodium 134 mmol/L (135-145); Total Protein 7.4 g/dL (6.5-8.0)
[2020-04-02 15:38] LABS: SLIDE REVIEW VERIFIED
--- NOTE | 2020-04-02 15:56 | MHC.CM.ED ---
Per MD, pt does not need emergent paracentisis. O2 100%. No distress. On Hospice.Routinely has paracentisis every 2 weeks as part of his hospice plan. OMID spoke to Elba CASON at [facility], Reviewed MD recommendations. Will continue his services at home. Pt has paracentisis scheduled for Monday at [facility]. [facility] booked for 1630 to transport home. Address verified with Elba. [address] [place] [address] [address], [place].
[2020-04-02 16:00] VITALS: RESP 18
--- NOTE | 2020-04-02 16:20 | MHC.CM.ED ---
CM met with pt. Whit. Concerned that his adult diaper was not re-secured. Secured brief for pt. Also concerned about his leg ulcerations and weeping. Asked that his dressings be reapplied. RN aware and will reapply. Pt aware that OMID spoke with Elba CASON at [facility] regarding MD recommendations. Pt aware that [facility] will continue his services. Pt aware that [facility] will be providing transportation home.
--- NOTE | 2020-04-02 16:25 | MHC.CM.ED ---
Pt verifies that his HCP is Chirag York and it is on file.
--- NOTE | 2020-04-02 16:43 | MHC.CM.ED ---
alerted CM of critical H&H 5.3/17.3/83,000. Will consult pt for blood transfusion. Ambulance cancelled for now. Met with pt. consulting for transfusion of 2 units RBC. Pt is Jehovah Witness and has his HCP on the phone. Discussed alternative options instead of blood. Pt agreeable to transfusion. States he has had blood transfusions in the past. Will follow for d/c needs
--- NOTE | 2020-04-02 16:46 | PC.NURSE ---
bilateral legs wrapped by md romeo ozuna also placed 18g. plan for 2u rbc
--- NOTE | 2020-04-02 17:12 | PC.NURSE ---
this rn to bedside. pt repositioned. pt states he wants to go home. aware. cm aware. pt re educated about ts and blood transfusion. states he doesnt want it because it is against his mormonism. aware.
--- NOTE | 2020-04-02 18:21 | MHC.CM.ED ---
Spoke with pt. twice. Pt is now refusing to wait in the ED to have a blood transfusion. Not opposed to having the blood, but opposed to staying any longer in the ED. Dr. Vasquez aware. Requests pt sign out Against Medical Advice. Pt eating dinner. Will book ambulance. Pt has overnight CLIN NURSE SPEC arranged at home. Will follow for d/c needs
--- NOTE | 2020-04-02 18:21 | PC.NURSE ---
pt continues to refuse blood transfusion. plan to dc home. cm taking care of transport home.
--- NOTE | 2020-04-02 18:34 | MHC.CM.ED ---
[facility] booked for 1930. Pt aware. Will report pt H&H and refusal of care to [facility].
== END 2020-04-02 19:55 | disposition left against medical advice (07) ==
PROVIDERS: Emergency Medicine; Emergency Provider Emergency Medicine; PCP Internal Medicine
DX: K74.60 Unspecified cirrhosis of liver (principal); B20 Human immunodeficiency virus [HIV] disease; B18.2 Chronic viral hepatitis C; Z20.822 Contact with and (suspected) exposure to COVID-19; E11.22 Type 2 diabetes mellitus with diabetic chronic kidney disease; I12.9 Hypertensive chronic kidney disease with stage 1 through stage 4 chronic kidney disease, or unspecified chronic kidney disease; N18.9 Chronic kidney disease, unspecified; F19.10 Other psychoactive substance abuse, uncomplicated
CPT/HCPCS: 36415; 71045; 80048; 80076; 82140; 83690; 83735; 83880; 85025; 85060; 85610; 85730; 87635; 99283; 99284

== ENCOUNTER 2020-05-14 10:19 | Emergency (ER) | payer OTHER, SELFPAY ==
[2020-05-14 10:45] VITALS: BP 151/64; BP 156/66; PULSE 65; PULSE 70; RESP 18; TEMP 36.7; O2SAT 100; O2SAT 96; BMI 40.5
--- NOTE | 2020-05-14 11:27 | ED_ITS ---
HPI - Psych General Chief Complaint: Psychiatric Symptoms Stated Complaint: DEPRESSION X'S 2DAYS, NO SI Time Seen by Provider: 05/14/20 11:23 Source: EMS Mode of arrival: EMS Limitations: no limitations History of Present Illness HPI Narrative: 64-year-old male with below noted past medical history including history of chronic hep C, liver cirrhosis, chronic kidney disease, gastroesophageal reflux disease, hypertension, hyperlipidemia, , diabetes, peripheral vascular disease, polysubstance abuse who presents via EMS from home after he called the ambulance for feeling depressed over the past 1 week worsening without any complaints of suicidal or homicidal ideation. MD complaint: feels depressed Onset (ago): day(s) Duration: constant History of same: Yes Relieving factors: none Exacerbating factors: none Associated psychiatric symptoms: depression Treatments prior to arrival: none Related Data Home Medications Medication Instructions Recorded Confirmed albuterol sulfate 2.5 mg INHALATION Q4H PRN 12/19/19 01/22/20 chlorpromazine 50 mg PO Q4H PRN 01/22/20 01/22/20 fentanyl 75 mcg TRANSDERMAL Q72H 01/22/20 01/22/20 fentanyl 100 mcg TRANSDERMAL Q72H 01/22/20 01/22/20 hydromorphone 8 mg PO Q2H PRN 01/22/20 01/22/20 hyoscyamine sulfate [Levsin] 0.125 mg PO Q4H PRN 01/22/20 01/22/20 lactulose 20 g PO Q4H 01/22/20 01/22/20 morphine concentrate 10 mg PO Q1H PRN 01/22/20 01/22/20 Allergies Allergy/AdvReac Type Severity Reaction Status Date / Time silver sulfadiazine Allergy Mild BURNING Verified 01/21/20 17:13 [From SILVADENE] erythromycin base Allergy Unknown HIVES Verified 01/21/20 17:13 [Erythromycin Base] Review of Systems Review of Systems: Constitutional: No Weight loss, No Fever, No Chills, No Night Sweats, No Fatigue, No Malaise ENT/Mouth: No Hearing loss, No Ear Pain, No Nasal Congestion, No Sinus Pain, No Hoarseness, No sore throat, No Rhinorrhea, No Swallowing Difficulty Eyes: No Eye Pain, No Swelling, No Redness, No Foreign Body, No Discharge, No Vision Changes Cardiovascular: No Chest Pain, No SOB, No Dyspnea on Exertion, No Orthopnea, No Edema, No Palpitations Respiratory: No Cough, No Sputum, No Wheezing, No Smoke Exposure, No Dyspnea Gastrointestinal: No Nausea, No Vomiting, No Diarrhea, No Constipation, No abdominal Pain, No Hematochezia, No Melena Genitourinary: no irregular bleeding, No Dysuria, No Urinary Frequency, No Hematuria, No Urinary Incontinence, No Urgency, No Flank Pain, No Urinary Flow Changes, No Hesitancy Musculoskeletal: No joint pain, No Myalgias, No Joint Swelling Skin: No Skin Lesions, No rash Neuro: No Weakness, No Numbness, No Paresthesias, No Loss of Consciousness, No Dizziness, No Headache Psych: No Anxiety/Panic, + Depression, No SI/HI/AH/VH, No Social Issues Heme/Lymph: No Bruising, No Bleeding,No Lymphadenopathy Endocrine: No Polyuria, No Polydipsia, No Temperature Intolerance Yes all other systems are reviewed and are negative [facility] Past Medical History Medical History Chronic hepatitis C Chronic venous insufficiency CKD (chronic kidney disease) Depression Encephalopathy GERD (gastroesophageal reflux disease) HIV (human immunodeficiency virus infection) HTN (hypertension) Liver cirrhosis Liver failure Non-healing ulcer of lower leg Pancytopenia Peripheral neuropathy Polysubstance abuse Type 2 diabetes mellitus Surgical History History of biopsy Family History Family History Mother Alzheimer disease Father Prostate cancer HTN (hypertension) Social History Social History Alcohol intake: unknown Smoking Status: Unknown if ever smoked Use of substances other than those prescribed or required for medical reasons: Unknown Substance Use Type: Crack/Cocaine and Heroin Advance Directives: Yes Advance Directives on File: Yes Advance Directives Date on File: 01/22/20 Physical Exam Vital Signs: Vital Signs: Last Vital Signs Temp 98.0 F 05/14/20 10:45 Pulse 65 05/14/20 10:45 Resp 18 05/14/20 10:45 BP 156/66 H 05/14/20 10:45 Pulse Ox 100 05/14/20 10:45 Body Mass Index 40.5 Reviewed Const: Other: Appears older than stated age Seems slightly drowsy states he is just tired he is on Dilaudid states he did not take any pain medicines prior to coming here General: comfortable and no acute distress Nutritional Appearance: average body habitus Orientation/consciousness: patient oriented x3 HENMT: Head: Yes normal to inspection Ears: hearing grossly normal bilaterally Eyes: General: appearance normal, both eyes and all related structures Visual Cuevas: normal visual cuevas by confrontation Neck: Neck: Yes normal visual inspection, No positive Brudzinski's sign, No positive Kernig's sign and No tender Thyroid: Thyroid normal Chest: Chest palpation & inspection: normal inspection of the chest Resp: Effort & Inspection: normal respiratory effort Auscultation: clear to auscultation bilaterally Cardio: Jugular venous distension: no JVD Rhythm: regular rhythm Heart sounds: S1 normal heart sound present and S2 normal heart sound present GI: Inspection: Yes normal to inspection Palpation (GI): Soft to palpation Percussion: Yes normal to percussion Auscultation: normal bowel sounds : General: Yes no CVA tenderness Back/Spine/Pelvis: Back: no CVA tenderness Skin: General skin exam: no rashes or lesions noted Neuro: General: patient oriented x3 Extrem: Other: Bilateral lower extremities with Damaso wraps around it states he has chronic swelling and venous stasis Course Reevaluation(s) Reevaluation #1: 1200 Slightly drowsy though pupils are reactive denies taking any pain medication prior to coming here he is on Dilaudid. He reports vague symptoms of depression but no suicidal or homicidal ideation. He offers no medical complaints. Given his complex medical history medical screening labs ordered and will refer to care team/crisis. Reevaluation #2: 1225 After my evaluation patient has been resting comfortably RN went to bedside to get screening labs however he is refusing this now requesting to be discharge I went to bedside to speak to him he has a calm and collective demeanor he is mentating well. He is alert and oriented x3. States he does not feel he needs to be here and he has services on outpatient basis that he will follow up with. He declined to speak to care team/crisis here. I did offer him speaking in without having any labs if that was but made him change of mind he still says he would like to be discharged. He does tell me that he has total time PCS services as well as VNA and home visits by provider. At this point he is mentating well and offers no complaints that would indicated him being held here against his will or Section 12. His vitals are stable. Afebrile, non tachy. No findings suggest encephalopathy. He will be discharged home he takes EMS back and forth to his appointments requesting transportation to be arranged back to his house. Discharge Plan Discharge Clinical Impression: Depression Patient Disposition: Left Against Medical Advice Additional Instructions: Please follow-up with her primary care doctor in the next 1 day Return if any concerns or worsening symptoms Thank Prescriptions: No [facility] albuterol sulfate 2.5 mg /3 mL (0.083 %) Solution For Nebulization 2.5 mg INHALATION Q4H PRN (Reason: Shortness Of Breath) RF: 0 hydromorphone 2 mg Tablet 8 mg PO Q2H PRN (Reason: Pain) RF: 0 fentanyl 100 mcg/hr Patch 72 Hour 100 mcg TRANSDERMAL Q72H RF: 0 hyoscyamine sulfate [Levsin] 0.125 mg Tablet 0.125 mg PO Q4H PRN (Reason: ORAL SECRETIONS) RF: 0 fentanyl 75 mcg/hr Patch 72 Hour 75 mcg TRANSDERMAL Q72H RF: 0 chlorpromazine 50 mg Tablet 50 mg PO Q4H PRN (Reason: Anxiety) RF: 0 morphine concentrate 20 mg/mL Syringe 10 mg PO Q1H PRN (Reason: Pain) RF: 0 lactulose 10 gram/15 mL Solution 20 g PO Q4H RF: 0 Referrals: Margret Rogers DO [Primary Care Provider] - 1 day
--- NOTE | 2020-05-14 12:02 | PC.NURSE ---
pt brought in by ems from home, pt reports feeling depressed x2 days, denies SI. pt is alert and oriented x3. pt eye contact and verbal response appropriate, lung sounds clear bilaterally in all power, bowel sounds active x4. pt lower legs and feet are dry and scaly, non-edamatous bilaterally, dressing on both legs are clean dry and intact. pt denies pain. pt requesting to leave facility, ION EXCHANGE OPERATOR at bedside. pt aware of risks of leaving AMA. pt reports that his primary care doctor does home visits for him and that he has visiting nurses. transportation to be set up for patient.
[2020-05-14 13:15] VITALS: BP 146/50; PULSE 73; RESP 18; TEMP 36.2; O2SAT 97
== END 2020-05-14 13:53 | disposition left against medical advice (07) ==
PROVIDERS: Emergency Provider Emergency Medicine; PCP Internal Medicine
DX: F32.9 Major depressive disorder, single episode, unspecified (principal); K74.60 Unspecified cirrhosis of liver; Z86.19 Personal history of other infectious and parasitic diseases; E11.22 Type 2 diabetes mellitus with diabetic chronic kidney disease; I12.9 Hypertensive chronic kidney disease with stage 1 through stage 4 chronic kidney disease, or unspecified chronic kidney disease; N18.9 Chronic kidney disease, unspecified; E78.5 Hyperlipidemia, unspecified; F19.10 Other psychoactive substance abuse, uncomplicated
CPT/HCPCS: 99283; 99284